=== PATIENT | male | born 1960 | race African-American/Black ===

== ENCOUNTER 2020-10-10 14:43 | Emergency (ER) | payer MEDICARE, OTHER, SELFPAY ==
--- NOTE | ~2020-10-10 | CT_ITS ---
EXAMINATION: HEAD AND CERVICAL SPINE CT CLINICAL INFORMATION: Fall COMPARISON: Previous head CT April [address] July 2017 TECHNIQUE: Axial images through the head and cervical spine without contrast. Sagittal and coronal reconstructions on the technologist workstation were performed. Patient dose 703+562 mgy/cm FINDINGS: Head CT: There is no evidence of an extra-axial collection. There is no evidence of intra-axial or extra-axial hemorrhage. The ventricles and extra-axial CSF spaces are appropriate. Pabon-white matter differentiation is normal. No mass, mass effect or infarct is seen. Review of bone windows is normal. No skull fracture is seen. Visualized paranasal sinuses, mastoid air cells and middle ears are clear. Cervical spine: Bone alignment is normal. No fracture or dislocation is seen. There is degenerative spondylosis with large bridging vertebral body bony osteophytes at C2-C3 C3-C4 and C4-C5. Spaces are normal. Prevertebral soft tissues are normal. There is a small 3 mm probably calcified right upper lobe nodule axial image [address]/CT cervical spine wo con IMPRESSION: Head CT: Unremarkable exam. Cervical spine CT: Degenerative changes. No fracture or dislocation is seen.
--- NOTE | ~2020-10-10 | CT_ITS ---
EXAMINATION: HEAD AND CERVICAL SPINE CT CLINICAL INFORMATION: Fall COMPARISON: Previous head CT April [address] July 2017 TECHNIQUE: Axial images through the head and cervical spine without contrast. Sagittal and coronal reconstructions on the technologist workstation were performed. Patient dose 703+562 mgy/cm FINDINGS: Head CT: There is no evidence of an extra-axial collection. There is no evidence of intra-axial or extra-axial hemorrhage. The ventricles and extra-axial CSF spaces are appropriate. Pabon-white matter differentiation is normal. No mass, mass effect or infarct is seen. Review of bone windows is normal. No skull fracture is seen. Visualized paranasal sinuses, mastoid air cells and middle ears are clear. Cervical spine: Bone alignment is normal. No fracture or dislocation is seen. There is degenerative spondylosis with large bridging vertebral body bony osteophytes at C2-C3 C3-C4 and C4-C5. Spaces are normal. Prevertebral soft tissues are normal. There is a small 3 mm probably calcified right upper lobe nodule axial image [address]/CT head/brain wo con IMPRESSION: Head CT: Unremarkable exam. Cervical spine CT: Degenerative changes. No fracture or dislocation is seen.
[2020-10-10 14:52] VITALS: BP 114/66; BP 118/69; PULSE 65; PULSE 78; RESP 18; TEMP 36.6; O2SAT 100; O2SAT 98; BMI 26.6
--- NOTE | 2020-10-10 15:04 | ED_ITS ---
HPI - Fall General Chief Complaint: Fall Stated Complaint: [facility] FALL W/LAC,+ COLLAR FROM SNF Time Seen by Provider: 10/10/20 14:48 Source: patient and EMS Mode of arrival: EMS Limitations: no limitations History of Present Illness HPI Narrative: 60-year-old male with a past medical history of hypertension, hyperlipidemia diabetes, hypothyroidism, hepatic fibrosis, schizophrenia, presbyopia, monocular estropia of left eye, corneal scar and opacity and acute cataract presenting via EMS with cervical collar in place after he was in the shower alone at [facility] where he is currently residing for [facility] unwitnessed fall port captain c head injury no LOC c laceration to right eyebrow. He reports that he slipped and fell. Denies any symptoms prior to the fall. Reports he got right back up and told the nurse and they called EMS immediately. Denies being on any blood thinners. At this time patient denies any dizziness, headaches, changes in vision, worsening vision, nausea/vomiting, jaw pain, paresthesias, chest pain, shortness of breath, palpitations, extremity edema, joint pain, back pain, abdominal pain, dysuria, hematuria, diarrhea constipation or any other symptoms complaints or concerns at this time. MD complaint: fall Onset (ago): minute(s) (Prior to arrival) Fall from: standing (In the shower slipped and fell) Fall witnessed: no Place fall occurred: [facility] ([facility]) Loss of consciousness: none Prolonged down time: no Symptoms prior to fall: none Context: tripped/slipped Location of injury: head (Right eyebrow) Related Data Allergies Allergy/AdvReac Type Severity Reaction Status Date / Time Penicillins [PCN] Allergy Intermediate DIZZINESS, Unverified 05/12/20 17:58 ALT MENTAL fish derived [FISH] Allergy Unknown UNKNOWN Unverified 05/12/20 17:58 shellfish derived Allergy Unknown UNKNOWN Unverified 05/12/20 17:58 [SHELLFISH DERIVED] SALMON Allergy Unknown UNKNOWN Uncoded 05/12/20 17:58 Review of Systems Review of Systems: Constitutional : No changes in activity, No lethargy, No recent prior head injury, No agitation, No increased fussiness ENT/Mouth : No Ear Pain, No Nasal discharge/drainage Eyes: No Eye Pain, No Swelling, No Redness, No Foreign Body, No Vision Changes Cardiovascular : No Chest Pain, No SOB Respiratory : No Cough Gastrointestinal : No Nausea, No Vomiting, No abdominal Pain Genitourinary : No Dysuria, No Urinary Frequency, No Urinary Incontinence, No Urgency, No Flank Pain Musculoskeletal : No joint pain, No neck stiffness, No back pain/injury Skin : + lacerations Neuro : No unsteady gait, No Paresthesias, No Loss of Consciousness, No altered mental status, No Headache, No Dizziness Yes all other systems are reviewed and are negative FOR[facility]LY [facility] Past Medical History Attestation statement: The following information was validated with the patient. Medical History Acute cataract Corneal scar and opacity Diabetic acidosis, type II Hepatic fibrosis HTN (hypertension) Hyperlipemia Hypothyroidism Monocular esotropia of left eye Presbyopia Psychosis Schizophrenia Social History Social History Advance Directives: No Advance Directives Information Provided: No Physical Exam Vital Signs: Vital Signs: Last Vital Signs Temp 97.8 F 10/10/20 16:26 Pulse 67 10/10/20 16:26 Resp 18 10/10/20 16:26 BP 119/70 10/10/20 16:26 Pulse Ox 95 10/10/20 16:26 Body Mass Index 26.6 Vital signs have been reviewed as normal and appeared to be correct. Blood pressure normal. Heart rate normal. Respiration rate normal. Temperature normal. Oxygen saturation normal. Appearance: Alert. Oriented X3. No acute distress. Head: To right eyebrow there is a 2 cm intermediate lack. No foreign bodies noted. No active bleeding noted. Otherwise the rest of the head external exam is normal and atraumatic. Able to rotate head bilaterally. Eyes: PERRLA. EOMI. No nystagmus noted. Conjunctiva and sclera normal. Eyelids normal. Corneal reflex normal. ENT: EAC normal. TM's Normal. Hearing normal. Pharynx normal. Uvula midline. tongue midline. Moist mucous membranes. No trismus noted. No drooling noted. No muffled voice noted. No nystagmus noted. Neck: C-collar in place and patient is having bilateral paracervical and mid cervical tenderness therefore C-collar will not be removed at this time. Normal inspection. Neck supple. No adenopathy. Trachea midline. Thyroid Normal. No meningeal signs. No neck mass noted. CVS: Normal heart rate and rhythm. Heart sound normal. No murmurs noted. Pulses normal throughout. Respiratory: No respiratory distress. Painless inspiration. Breath sounds normal. No wheezes/rales/rhonchi noted. Chest nontender. No accessory muscle usage noted or decreased air movement noted. Abdomen: Soft and nontender. Bowel sounds normal in all 4 quadrants. No distention noted. No organomegaly noted. No visible injury noted. Back: No CVA tenderness. Full range of motion noted. No obvious deformities noted. Skin: Skin warm and dry. Normal skin color. Normal skin turgor. No rashes/lesions/lacerations noted. Extremities: No lower extremity edema. Extremities exhibit normal range of motion. Extremities nontender. Able to shrug shoulders bilaterally and keep up against resistance. Neuro: Oriented X 3. No motor deficit. No sensory deficit. Reflexes normal. Moving all extremities. No focal motor deficits. Cranial nerves II-XI intact bilaterally. Facial strength normal. Normal cognition. Speech normal. Strength 5/5 throughout. No pronator drift. No tremor noted. No fasciculations noted. No rigidity noted. Muscle tone normal throughout. No asterixis noted. Zymuyd-hr-[id number] test normal. Heel to kingsley test normal. Hand drop from overhead Misses face. Course Course Course Narrative: 15pm - 60-year-old male with a past medical history of hypertension, hyperlipidemia diabetes, hypothyroidism, hepatic fibrosis, schizophrenia, presbyopia, monocular estropia of left eye, corneal scar and opacity and acute cataract presenting via EMS with cervical collar in place after he was in the shower alone at [facility] where he is currently residing for [facility] facility for unwitnessed fall port captain c head injury no LOC c laceration to right eyebrow. He reports that he slipped and fell. Denies symptoms prior to the fall. - Concern for SAH vs fracture - Plan: Labs, CT scan of brain/cervival spine, and then suture the patient's lac eration then re-evaluate. Reevaluation(s) Reevaluation #1: - white blood cell count of 4000 otherwise all other labs are within normal limits. - CT scan of brain and cervical spine within normal limits no acute processes only chronic changes noted. - patient is now status post laceration repair with [address] No co mplications. - will DC home back to [facility] with instructions return in 5 days for suture removal. Patient understands agrees the plan. Time: 16:51 Procedures Laceration Laceration 1: Site: face (Right eyebrow) Side (If applicable): right Size (cm): 3 Description: linear Depth: simple, single layer Local Anesthetic: lidocaine 1% Amount of anesthesia used (mL): 5 Skin layer closed with: nylon Size (cm): 5-0 Number of sutures: 5 Technique: simple, interrupted MDM - Fall Medical Records Attestation: I reviewed the patient's medical records. Lab Data Attestation: I reviewed the patient's lab results. Result diagrams: 10/10/20 15:30 10/10/20 15:30 Labs: Lab Results 10/10/20 10/10/20 10/10/20 Range/Units 15:30 15:30 15:30 WBC 4.5 L (4.8-10.8) X10*3/uL RBC 4.55 L (4.60-5.80) X10*6/uL Hgb 14.1 (14.0-18.0) g/dl Hct 43.6 (42-52) % MCV 95.8 (80-98) fL MCH 31.0 (27.0-33.0) pg MCHC 32.3 (31.0-36.0) g/dl RDW 13.0 (11.0-16.0) % Plt Count 211 (160-400) X10*3/uL MPV 10.5 (9.4-12.4) fL Immature Gran % (Auto) 0.2 (0.0-0.4) % Neut % (Auto) 42.4 L (45-73) % Lymph % (Auto) 44.8 H (20-40) % [place] % (Auto) 8.4 (2-11) % Eos % (Auto) 3.8 (0-4) % Baso % (Auto) 0.4 (0-2) % Lymph # (Auto) 2.0 (1.2-4.9) X10*3/uL [place] # (Auto) 0.4 (0.1-1.2) X10*3/uL Eos # (Auto) 0.2 (0.0-0.4) X10*3/uL Baso # (Auto) 0.0 (0.0-0.2) X10*3/uL Abs Immat Gran (auto) 0.01 (0.00-0.03) X10*3/uL Absolute Neuts (auto) 1.9 L (2.0-8.3) X10*3/uL Absolute Nucleated RBC 0.000 (0.0-0.012) X10*3/uL Nucleated RBC % (auto) 0.0 (0.0-0.2) /100WBC Hold Purple Top SEE NOTE Hold Blue Top SEE NOTE Sodium (135-145) mmol/L Potassium (3.3-5.1) mmol/L Chloride (96-108) mmol/L Carbon Dioxide (22-29) mmol/L Anion Gap (12-20) BUN (9-16) mg/dL Creatinine (0.5-1.4) mg/dL Estim Creat Clear Calc Estimated GFR Random Glucose (60-115) mg/dL Calcium (8.4-10.2) mg/dL Magnesium (1.6-2.6) mg/dL Total Bilirubin (0.0-1.0) mg/dL Direct Bilirubin (0.0-0.5) mg/dL AST (5-37) U/L ALT (0-40) U/L Alkaline Phosphatase (39-117) U/L Total Protein (6.5-8.0) g/dL Albumin (3.5-5.0) g/dL 10/10/20 Range/Units 15:30 WBC (4.8-10.8) X10*3/uL RBC (4.60-5.80) X10*6/uL Hgb (14.0-18.0) g/dl Hct (42-52) % MCV (80-98) fL MCH (27.0-33.0) pg MCHC (31.0-36.0) g/dl RDW (11.0-16.0) % Plt Count (160-400) X10*3/uL MPV (9.4-12.4) fL Immature Gran % (Auto) (0.0-0.4) % Neut % (Auto) (45-73) % Lymph % (Auto) (20-40) % [place] % (Auto) (2-11) % Eos % (Auto) (0-4) % Baso % (Auto) (0-2) % Lymph # (Auto) (1.2-4.9) X10*3/uL [place] # (Auto) (0.1-1.2) X10*3/uL Eos # (Auto) (0.0-0.4) X10*3/uL Baso # (Auto) (0.0-0.2) X10*3/uL Abs Immat Gran (auto) (0.00-0.03) X10*3/uL Absolute Neuts (auto) (2.0-8.3) X10*3/uL Absolute Nucleated RBC (0.0-0.012) X10*3/uL Nucleated RBC % (auto) (0.0-0.2) /100WBC Hold Purple Top Hold Blue Top Sodium 138 (135-145) mmol/L Potassium 4.9 (3.3-5.1) mmol/L Chloride 108 (96-108) mmol/L Carbon Dioxide 22 (22-29) mmol/L Anion Gap 13 (12-20) BUN 21 H (9-16) mg/dL Creatinine 0.84 (0.5-1.4) mg/dL Estim Creat Clear Calc 83.3 Estimated GFR > 60 Random Glucose 76 (60-115) mg/dL Calcium 10.0 (8.4-10.2) mg/dL Magnesium 2.4 (1.6-2.6) mg/dL Total Bilirubin 0.5 (0.0-1.0) mg/dL Direct Bilirubin < 0.2 (0.0-0.5) mg/dL AST 17 (5-37) U/L ALT 12 (0-40) U/L Alkaline Phosphatase 71 (39-117) U/L Total Protein 7.9 (6.5-8.0) g/dL Albumin 4.5 (3.5-5.0) g/dL Imaging Data CT scan of brain and cervical spine: Attestation: I personally reviewed and interpreted this imaging study as follows: Radiologist's impression: FINDINGS: Head CT: There is no evidence of an extra-axial collection. There is no evidence of intra-axial or extra-axial hemorrhage. The ventricles and extra-axial CSF spaces are appropriate. Pabon-white matter differentiation is normal. No mass, mass effect or infarct is seen. Review of bone windows is normal. No skull fracture is seen. Visualized paranasal sinuses, mastoid air cells and middle ears are clear. Cervical spine: Bone alignment is normal. No fracture or dislocation is seen. There is degenerative spondylosis with large bridging vertebral body bony osteophytes at C2-C3 C3-C4 and C4-C5. Spaces are normal. Prevertebral soft tissues are normal. There is a small 3 mm probably calcified right upper lobe nodule axial image [address]/CT head/brain wo con IMPRESSION: Head CT: Unremarkable exam. Cervical spine CT: Degenerative changes. No fracture or dislocation is seen. Discharge Plan Discharge Clinical Impression: Fall from slipping, Laceration of eyebrow, right Patient Disposition: [facility] Instructions: Fall Prevention (ED), Facial Laceration (ED) Additional Instructions: You can give the patient Tylenol for his pain if he has any. Up to 500 mg every 6-8 hours. Patient needs to have his sutures removed in 5 days. He has [address] scan of brain and cervical spine was within normal limits no acute processes noted. Referrals: Akua Cherry PA [Emergency Midlevel Provider] - 5 days (For suture removal) Emile Queen DO [Primary Care Provider] - 2 days Print Language: East Timorese
[2020-10-10 15:38] LABS: MANUAL DIFF FLAG NO
[2020-10-10 15:42] LABS: Basophils Percent Auto 0.4 % (0-2); Eosinophils Absolute Auto 0.2 X10*3/uL (0.0-0.4); Eosinophils Percent Auto 3.8 % (0-4); Hematocrit 43.6 % (42-52); Hemoglobin 14.1 g/dl (14.0-18.0); Imm Gran Abs Auto 0.01 X10*3/uL (0.00-0.03); Imm Gran Pct Auto 0.2 % (0.0-0.4); Lymphocytes Percent Auto 44.8 % (20-40); Mean Corpuscular HGB Conc 32.3 g/dl (31.0-36.0); Mean Corpuscular Volume 95.8 fL (80-98); Mean Platelet Volume 10.5 fL (9.4-12.4); Monocytes Absolute Auto 0.4 X10*3/uL (0.1-1.2); Monocytes Percent Auto 8.4 % (2-11); Neutrophils Absolute Auto 1.9 X10*3/uL (2.0-8.3); Neutrophils Percent Auto 42.4 % (45-73); Platelet Count 211 X10*3/uL (160-400); Red Blood Count 4.55 X10*6/uL (4.60-5.80); White Blood Count 4.5 X10*3/uL (4.8-10.8)
[2020-10-10 16:06] LABS: Alanine Aminotransferase 12 U/L (0-40); Albumin Level 4.5 g/dL (3.5-5.0); Alkaline Phosphatase 71 U/L (39-117); Anion Gap 13 (12-20); Aspartate Amino Transferase 17 U/L (5-37); Bilirubin Direct < 0.2 mg/dL (0.0-0.5); Bilirubin Total 0.5 mg/dL (0.0-1.0); Blood Urea Nitrogen 21 mg/dL (9-16); Carbon Dioxide 22 mmol/L (22-29); Chloride 108 mmol/L (96-108); Creatinine Clr Calc Pharmacy 83.3; Estimated Glomerular Filt Rate > 60; Glucose Random 76 mg/dL (60-115); Magnesium 2.4 mg/dL (1.6-2.6); Potassium 4.9 mmol/L (3.3-5.1); Sodium 138 mmol/L (135-145); Total Protein 7.9 g/dL (6.5-8.0)
[2020-10-10 16:26] VITALS: BP 119/70; PULSE 67; RESP 18; TEMP 36.6; O2SAT 95
[2020-10-10] MEDS: Lidocaine HCl 1 % MPF 5 ML VIAL SUBCUT (16:42)
--- NOTE | 2020-10-10 16:42 | PC.NURSE ---
idania reed at bedside for sutures.
--- NOTE | 2020-10-10 17:35 | PC.NURSE ---
Report called at 1732 to Carlos to nurse White.
--- NOTE | 2020-10-10 18:03 | PC.NURSE ---
Awaiting transport back to [facility] on [address].
[2020-10-10 18:19] VITALS: BP 139/71; PULSE 61; RESP 16; TEMP 36.4; O2SAT 99
== END 2020-10-10 19:38 | disposition skilled nursing facility (03) ==
PROVIDERS: Physician Assistant Medical; Emergency Provider Emergency Medicine; PCP Hospitalist
DX: S01.111A Laceration without foreign body of right eyelid and periocular area, initial encounter (principal); W18.2XXA Fall in (into) shower or empty bathtub, initial encounter; I10 Essential (primary) hypertension; E11.9 Type 2 diabetes mellitus without complications; Y93.E1 Activity, personal bathing and showering; Y92.121 Bathroom in nursing home as the place of occurrence of the external cause; Y99.9 Unspecified external cause status
CPT/HCPCS: 12013; 36415; 70450; 72125; 80048; 80076; 83735; 85025; 99284

== ENCOUNTER 2022-11-23 08:58 | Outpatient (REF) | payer MEDICARE, SELFPAY ==
--- NOTE | ~2022-11-23 | US_ITS ---
EXAMINATION: US COMPLETE ABDOMEN WITH LIVER ELASTOGRAPHY CLINICAL INFORMATION: Chronic viral hepatitis C COMPARISON: Previous abdominal ultrasound November 2018 TECHNIQUE: Real-time imaging of the abdominal viscera. Noninvasive ultrasound liver fibrosis assessment is performed using Isaiah ElastPQ point quantification shear wave elastography (2D-SWE) with a C5-2 MHz transducer. Multiple elastography samples are obtained. FINDINGS: PANCREAS: The visualized pancreatic head and body are normal in appearance. The remainder of the pancreas is obscured from visualization by the overlying bowel gas. ABDOMINAL AORTA: The proximal, middle, and distal aortic segments are normal in caliber. INFERIOR VENA CAVA: Visualized portions are normal. LIVER: Liver echotexture is slightly heterogeneous. The liver demonstrates normal size, and contour. No focal lesion or intrahepatic biliary duct dilatation. The right lobe measures 15 cm in length. The left lobe measures 9 cm in length. Portal flow is normal Shear wave liver elastography median stiffness is 1.08 m/s (reference: normal median stiffness is 1.3 m/s or less). IQR/median stiffness to assess sampling precision is 0.21 (reference: good quality data set is IQR/median stiffness of 0.15 or less). GALLBLADDER: Normal. The gallbladder is physiologically distended without evidence of stones, sludge, polyps, wall thickening or pericholecystic fluid. COMMON BILE DUCT: Normal in caliber measuring 0.4 cm in diameter. RIGHT KIDNEY: Normal. No hydronephrosis. No renal calculi or focal parenchymal lesions. The kidney measures 10.2 cm in maximum dimension. LEFT KIDNEY: Limited visualization. The kidney measures 10 cm in maximum dimension. SPLEEN: Normal. The spleen measures 10.5 cm in maximum dimension. FREE FLUID: None. US/US abdomen comp w elastography IMPRESSION: 1. Impression slightly heterogeneous liver echotexture. No focal liver lesion. Limited evaluation of the left kidney and tail of the pancreas. 2. Liver elastography: Limited due to sampling error. REFERENCE: Society of Radiologists in Ultrasound Liver Stiffness Thresholds (2020): LIVER STIFFNESS THRESHOLDS: *Liver Stiffness equal or less than 1.3 m/s: High probability of being normal. *Liver Stiffness less than 1.7 m/s: In the absence of other known clinical signs, rules out compensated advanced chronic liver disease. *Liver Stiffness 1.7-2.1 m/s: Suggestive of compensated advanced chronic liver disease but need further test for confirmation. *Liver Stiffness over 2.1 m/s: Rules in compensated advanced chronic liver disease. *Liver Stiffness over 2.4 m/s: Suggestive of clinically significant portal hypertension. QUALITY OF DATA SET: *IQR/Median value equal or less than 0.15 implies a quality data set. *IQR/Median value over 0.15 implies a poor quality data set. SIGNIFICANT CHANGE FROM PRIOR EXAM: Significant change if liver stiffness measurement is 10% or greater from prior exam. OTHER CONSIDERATIONS: The stage of liver fibrosis may be overestimated in the setting of acute hepatitis, liver inflammation, elevated liver function tests, hepatic vascular congestion, obstructive cholestasis, non-fasting state, and infiltrative diseases such as amyloidosis and lymphoma. In some patients with NAFLD, the liver stiffness thresholds for compensated advanced chronic liver disease may be lower. In causes other than viral hepatitis and NAFLD, liver stiffness thresholds are not well established.
== END 2022-11-23 08:59 | disposition home or self-care (01) ==
LOC: HO.US 08:58
PROVIDERS: PCP Hospitalist; Visit Provider Internal Medicine
DX: B18.2 Chronic viral hepatitis C (principal); K74.00 Hepatic fibrosis, unspecified
CPT/HCPCS: 76705; 76981

== ENCOUNTER 2024-01-10 08:49 | Outpatient (REF) | payer MEDICARE, MEDICAID, SELFPAY ==
--- NOTE | ~2024-01-10 | US_ITS ---
EXAMINATION: US COMPLETE ABDOMEN WITH LIVER ELASTOGRAPHY CLINICAL INFORMATION: Hepatitis C. Liver fibrosis. COMPARISON: Previous exam most recent October 2022 TECHNIQUE: Real-time imaging of the abdominal viscera. Noninvasive ultrasound liver fibrosis assessment is performed using Isaiah ElastPQ point quantification shear wave elastography (2D-SWE) with a C5-2 MHz transducer. Multiple elastography samples are obtained. FINDINGS: PANCREAS: Normal. ABDOMINAL AORTA: The proximal, middle, and distal aortic segments are normal in caliber. INFERIOR VENA CAVA: Visualized portions are normal. LIVER: Liver echotexture is slightly heterogeneous. The liver demonstrates normal size and contour. No focal lesion or intrahepatic biliary duct dilatation. The right lobe measures 12.8 cm in length. The left lobe measures 7.1 cm in length. Portal flow is normal/hepatopedal Shear wave liver elastography median stiffness is 1.46 m/s (reference: normal median stiffness is 1.3 m/s or less). Previous 1.08 m/s. IQR/median stiffness to assess sampling precision is 0.4 (reference: good quality data set is IQR/median stiffness of 0.15 or less). GALLBLADDER: Normal. The gallbladder is physiologically distended without evidence of stones, sludge, polyps, wall thickening or pericholecystic fluid. COMMON BILE DUCT: Normal in caliber measuring 0.3 cm in diameter. RIGHT KIDNEY: Normal. No hydronephrosis. No renal calculi or focal parenchymal lesions. The kidney measures 9.3 cm in maximum dimension. LEFT KIDNEY: Small cysts largest measuring 7 mm in the upper pole. No hydronephrosis. No renal calculi or focal parenchymal lesions. The kidney measures 9.6 cm in maximum dimension. SPLEEN: Normal. The spleen measures 9.2 cm in maximum dimension. FREE FLUID: None. US/US abdomen comp w elastography IMPRESSION: 1. Impression: Slightly heterogeneous liver echotexture. No evidence of cirrhosis or focal liver lesion. 2. Liver elastography: Limited due to sampling error/patient could not hold breath. REFERENCE: Society of Radiologists in Ultrasound Liver Stiffness Thresholds (2020): LIVER STIFFNESS THRESHOLDS: *Liver Stiffness equal or less than 1.3 m/s: High probability of being normal. *Liver Stiffness less than 1.7 m/s: In the absence of other known clinical signs, rules out compensated advanced chronic liver disease. *Liver Stiffness 1.7-2.1 m/s: Suggestive of compensated advanced chronic liver disease but need further test for confirmation. *Liver Stiffness over 2.1 m/s: Rules in compensated advanced chronic liver disease. *Liver Stiffness over 2.4 m/s: Suggestive of clinically significant portal hypertension. QUALITY OF DATA SET: *IQR/Median value equal or less than 0.15 implies a quality data set. *IQR/Median value over 0.15 implies a poor quality data set. SIGNIFICANT CHANGE FROM PRIOR EXAM: Significant change if liver stiffness measurement is 10% or greater from prior exam. OTHER CONSIDERATIONS: The stage of liver fibrosis may be overestimated in the setting of acute hepatitis, liver inflammation, elevated liver function tests, hepatic vascular congestion, obstructive cholestasis, non-fasting state, and infiltrative diseases such as amyloidosis and lymphoma. In some patients with NAFLD, the liver stiffness thresholds for compensated advanced chronic liver disease may be lower. In causes other than viral hepatitis and NAFLD, liver stiffness thresholds are not well established.
== END 2024-01-10 08:50 | disposition home or self-care (01) ==
LOC: HO.US 08:49
PROVIDERS: PCP Hospitalist; Visit Provider Internal Medicine
DX: K74.00 Hepatic fibrosis, unspecified (principal); Z86.19 Personal history of other infectious and parasitic diseases
CPT/HCPCS: 76700; 76981

== ENCOUNTER 2024-01-14 08:48 | Outpatient (AMB) | payer MEDICARE, SELFPAY ==
--- NOTE | 2024-01-14 08:58 | A.OFFVIS_ITS ---
Intake Visit Reasons: Urinary incontinences Intake Note: New Patient presents for initial visit for Urinary Incontinence Urology Medications: Blood Thinner: PVR: 51ml's Resident Physician In Radiology Required: No Accompanied by: INSULATION AND FLOORING ASSEMBLER Allergies Penicillins [PCN] Allergy (Intermediate, Unverified 01/14/24 09:31) DIZZINESS, ALT MENTAL fish derived [FISH] Allergy (Unknown, Unverified 01/14/24 09:31) UNKNOWN shellfish derived [SHELLFISH DERIVED] Allergy (Unknown, Unverified 01/14/24 09:31) UNKNOWN SALMON Allergy (Unknown, Uncoded 01/14/24 09:31) UNKNOWN Medication List - Last Reconciled 01/14/24 by LAURO Valdez acetaminophen 650 mg PO Q4H PRN gemfibrozil 600 mg PO BID insulin glargine (Lantus Solostar U-100 Insulin) units subcut levothyroxine mcg PO lisinopril 2.5 mg PO DAILY lithium carbonate ER 300 mg PO BID lurasidone 20 mg PO DAILY metformin 1,000 mg PO BID pregabalin 600 mg PO BID HPI Comments Details: Last is a 63-year-old male patient of Dr. Queen was accompanied by his care worker today Radha. He has a PMH of hypertension, schizophrenia, hemorrhoids, diverticulosis, fatty liver, type 2 diabetes, hyperlipidemia, corneal scar and opacity, hypothyroidism, monocular esotropia of the left eye, and psychosis. He presents to the office today as a new patient for urinary incontinence. In review of patient's not appear he is on any urological medications. Recent PSA results 12/17 3.9 these results were reviewed with the patient today. He is a poor historian given his PMH. When asked he currently denies any bothersome urinary issues or concerns. However in review of patient's chart it appears referral was made for urinary incontinence. When asking the patient if he suffers from urinary incontinence he does report at times he does not make it to the bathroom in time and wets his pants. He otherwise denies urinary urgency, urinary frequency, nocturia, hematuria, dysuria, foul smelling urine, changes to urinary stream, flank pain, fever, and or chills. In office urinalysis results reviewed with the patient and gambling cashier today. PVR 51 mL. Discussed obtaining retroperitoneal ultrasound and redraw of PSA for further assessment evaluation. Discussed lifestyle modifications to assist with urinary incontinence such as timed/scheduled voiding. [facility] Medical History (Updated 01/14/24 @ 09:31 by LAURO Valdez) Essential (primary) hypertension Disorder of bone, unspecified Schizophreniform disorder Other hemorrhoids Diverticulosis of intestine, part unspecified, without perforation or abscess without bleeding Fatty (change of) liver, not elsewhere classified Hepatic fibrosis, advanced fibrosis Unspecified astigmatism, left eye Age-related nuclear cataract, left eye Other corneal scars and opacities Unsteadiness on feet Unspecified lack of coordination Concussion without loss of consciousness, sequela Type 2 diabetes mellitus without complications Unspecified psychosis not due to a substance or known physiological condition Corneal scar and opacity Acute cataract Hyperlipemia HTN (hypertension) Hypothyroidism Presbyopia Schizophrenia Monocular esotropia of left eye Hepatic fibrosis Diabetic acidosis, type II Psychosis Social History Alcohol intake: former Review of Systems Const Unobtainable due to mental condition and Unobtainable due to mental status Reports as per HPI Physical Exam Const General: cooperative, healthy appearing, comfortable, no acute distress, well developed, alert and awake Orientation/consciousness: oriented to person Limitations: ambulation with walker HEENT Head: Yes normal to inspection, Yes normocephalic and Yes atraumatic Ears: hearing grossly normal bilaterally Eyes Other: Right eye with mo discoloration Neck Neck: Yes normal visual inspection and Yes trachea midline Chest Chest palpation & inspection: normal inspection of the chest Resp Effort & Inspection: normal respiratory effort and able to speak in complete sentences Cardio Rate: regular rate GI Inspection: Yes normal to inspection General: Yes no CVA tenderness Back/Spine/Pelvis Back: no CVA tenderness Skin General skin exam: no rashes or lesions noted Neuro General: oriented to person Extrem General: Yes normal to inspection Psych Appearance: grossly normal and well kempt Speech and movement: Normal speech and movement present and Clear speech present Affect: normal affect Attitude: cooperative Thought process: Loose association thought process present Insight: Limited insight present (Psych) and Poor insight present (Psych) Judgement: Limited judgement present (Psych) and Poor judgement present (Psych) Office Procedures Post Void Residual Post Residual Void Post Void Residual (PVR): 51 [id number] Void Residual by ultrasound Results AMB Urinalysis, Automated UA Leukoctes 0 Tyesha/uL Last Edit by Mily Milligan on 01/14/24 09:16 UA Nitrite Negative Last Edit by Mily Milligan on 01/14/24 09:16 UA Urobilinogen 0.2 mg/dL Last Edit by Mily Milligan on 01/14/24 09:16 UA Protein 15 mg/dL Last Edit by Mily Milligan on 01/14/24 09:16 UA pH 6.0 Last Edit by Mily Milligan on 01/14/24 09:16 UA Blood 0 Yovanny/uL Last Edit by Mily Milligan on 01/14/24 09:16 UA Specific [place] 1.015 Last Edit by Mily Milligan on 01/14/24 09:16 UA Ketone Negative Last Edit by Mily Milligan on 01/14/24 09:16 UA Bilirubin 0 mg/dL Last Edit by Mily Milligan on 01/14/24 09:16 UA Glucose 0 mg/dL Last Edit by Mily Milligan on 01/14/24 09:16 Results Reviewed Results Reviewed: Laboratory Last Values Urine pH (Auto) 6.0 01/14/24 09:07 Specific [place] (Auto) 1.015 01/14/24 09:07 Urine Protein (Auto) 15 mg/dL 01/14/24 09:07 Glucose (UA)(Auto) 0 mg/dL 01/14/24 09:07 Urine Ketones (Auto) Negative 01/14/24 09:07 Urine Blood (Auto) 0 Yovanny/uL 01/14/24 09:07 Urine Nitrite (Auto) Negative 01/14/24 09:07 Urine Bilirubin (Auto) 0 mg/dL 01/14/24 09:07 Urine Urobilinogen (Auto) 0.2 mg/dL 01/14/24 09:07 Leukocyte Esterase (Auto) 0 Tyesha/uL 01/14/24 09:07 Assessment & Plan Assessment & Plan (1) Incontinence: Code(s): R32 - Unspecified urinary incontinence Category: Medical Plan In office urinalysis results reviewed with the patient today. PVR 51 mLs Recent PSA results reviewed with the patient today; as noted above. Will obtain retroperitoneal ultrasound for further assessment evaluation. Will obtain redraw of PSA Discussed timed/scheduled voiding. Discussed bladder triggers/irritants. Follow-up in 1-3 months with imaging and labs to be completed prior; or sooner with any issues, concerns, and or questions. Orders: Orders US retroperitoneal comp Today R32 - Unspecified urinary incontinence AMB Urinalysis Automated Today Z13.9 - Encounter for screening, unspecified AMB Post Void Residual by ultrasound Today Z13.9 - Encounter for screening, unspecified Prostate Specific Antigen Today R97.20 - Elevated prostate specific antigen [PSA] Patient Instructions: The patient had an opportunity to ask questions regarding the treatment plan. All questions were answered. Physical exam, labs, and imaging were discussed and reviewed in detail. As well as risks, benefits, and discussion of treatment choices. No major barriers to understanding were identified. The patient expressed understanding and agreement with the above treatment plan. The patient was made aware they should contact our office by phone for worsening of their current condition, the appearance of new symptoms, or with any questions or concerns. Compliance is encouraged with any medications and follow up testing that is ordered. It is a privilege to be allowed the opportunity to participate in? your urological care.? Again, if you have any questions or concerns If you have any questions or concerns please do not hesitate to contact me. The office is [phone]. This note is constructed using voice recognition software. While every effort has been made to ensure accuracy fire supervisor errors may have been included. Yours sincerely, LAURO Valdez Coding Level of Care Code New Pt Level 3 (34201) Diagnoses Incontinence R32 CPT Codes Post Residual Void - PVR CPT Code: 96740-Aqya Void Residual by ultrasound ([id number])
== END 2024-01-14 09:33 | disposition home or self-care (01) ==
PROVIDERS: PCP Hospitalist; Visit Provider Nurse Practitioner Family
DX: R32 Unspecified urinary incontinence (principal); Z13.9 Encounter for screening, unspecified
CPT/HCPCS: 99203

== ENCOUNTER → 2024-01-14 08:48 | Outpatient (BNVA) | payer MEDICARE, MEDICAID, SELFPAY | PROVIDERS: PCP Hospitalist; Visit Provider Nurse Practitioner Family | DX: R32 Unspecified urinary incontinence (principal) | CPT/HCPCS: 51798; 81003; 99202 ==

== ENCOUNTER 2024-03-03 13:38 | Outpatient (REF) | payer MEDICARE, SELFPAY ==
[2024-03-03 14:00] LABS: MANUAL DIFF FLAG NO
[2024-03-03 14:47] LABS: Basophils Percent Auto 0.5 % (0-2); Eosinophils Absolute Auto 0.3 X10*3/uL (0.0-0.4); Eosinophils Percent Auto 4.9 % (0-4); Hematocrit 41.7 % (42.0-52.0); Hemoglobin 13.7 g/dl (14.0-18.0); Imm Gran Abs Auto 0.01 X10*3/uL (0.00-0.03); Imm Gran Pct Auto 0.2 % (0.0-0.4); Lymphocytes Absolute Auto 1.9 X10*3/uL (1.2-4.9); Mean Corpuscular HGB Conc 32.9 g/dl (31.0-36.0); Mean Corpuscular Hemoglobin 31.4 pg (27.0-33.0); Mean Corpuscular Volume 95.6 fL (80.0-98.0); Mean Platelet Volume 10.4 fL (9.4-12.4); Monocytes Absolute Auto 0.5 X10*3/uL (0.1-1.2); Monocytes Percent Auto 8.6 % (2-11); Neutrophils Absolute Auto 2.8 x10*3/uL (2.0-8.3); Neutrophils Percent Auto 50.8 % (45-73); Platelet Count 238 X10*3/uL (160-400); Red Blood Count 4.36 X10*6/uL (4.60-5.80); Red Cell Distribution Width 13.1 % (11.0-16.0); White Blood Count 5.5 X10*3/uL (4.8-10.8)
[2024-03-03 14:50] LABS: Prothrombin Time 11.6 SEC (11.1-13.3)
[2024-03-03 15:30] LABS: Alanine Aminotransferase 15 U/L (0-40); Albumin Level 4.5 g/dL (3.5-5.0); Alkaline Phosphatase 91 U/L (39-117); Aspartate Amino Transferase 14 U/L (5-37); Bilirubin Direct < 0.2 mg/dL (0.0-0.5); Bilirubin Total 0.2 mg/dL (0.0-1.0); Total Protein 7.6 g/dL (6.5-8.0)
[2024-03-04 11:28] LABS: Alpha Fetoprotein 7.5 ng/mL (<6.1)
[2024-03-05 15:04] LABS: HCV Log PCR <1.18 NOT DETECTED Log IU/mL (NOT DETECTED); HepC Viral Load <15 NOT DETECTED IU/mL (NOT DETECTED)
[2024-03-12 17:18] LABS: FIB-ALT 13 U/L (9-46); FIB-Alpha-2-Macroglobulin 271 mg/dL (106-279); FIB-Apolipoprotein A1 92 mg/dL (94-176); FIB-GGT 11 U/L (3-70); FIB-Haptoglobin 124 mg/dL (43-212); FIB-Total Bilirubin 0.2 mg/dL (0.2-1.2); Liver Fibrosis Score 0.33; Liver Fibrosis Stage F1-F2; Nec Inflam Act Grade A0; Nec Inflam Act Score 0.04
== END 2024-03-03 13:39 | disposition home or self-care (01) ==
LOC: HO.LAB 13:38
PROVIDERS: PCP Hospitalist; Visit Provider Internal Medicine
DX: K74.00 Hepatic fibrosis, unspecified (principal); Z86.19 Personal history of other infectious and parasitic diseases
CPT/HCPCS: 36415; 80076; 81596; 82105; 85025; 85610; 87522

== ENCOUNTER 2024-04-10 13:47 | Outpatient (REF) | payer MEDICARE, MEDICAID, SELFPAY ==
--- NOTE | ~2024-04-10 | US_ITS ---
EXAMINATION: US RETROPERITONEAL COMPLETE (RENAL) CLINICAL INFORMATION: Unspecified urinary incontinence. COMPARISON: Ultrasound abdomen complete 01/10/2024 and 11/23/2022. CT abdomen and pelvis 02/17/2016. TECHNIQUE: Real-time imaging of the kidneys and bladder. FINDINGS: RIGHT KIDNEY: 11.0 x 4.4 x 4.4 cm (SAG x AP x TRV). The kidney is normal in size, contour, and echogenicity. Renal cortical thickness is normal. No calculi or focal parenchymal lesions. No hydronephrosis. LEFT KIDNEY: 10.8 x 5.9 x 5.0 cm (SAG x AP x TRV). The kidney is normal in size, contour, and echogenicity. Renal cortical thickness is normal. No renal calculi or hydronephrosis. Benign-appearing renal cysts measuring up to 1.5 cm. No follow-up imaging is recommended. BLADDER: Urinary bladder appears thick walled and slightly trabeculated. Bilateral ureteral jets are demonstrated. Prevoid bladder volume is 180.6 mL. Postvoid bladder volume is 152.6 mL. ADDITIONAL FINDINGS: Prostate is enlarged with a volume of 72.1 mL. US/US retroperitoneal comp IMPRESSION: 1. Urinary bladder appears thick walled and slightly trabeculated with a large postvoid bladder residual of 152.6 mL. Recommend correlation with symptoms of chronic bladder outlet obstruction or neurogenic bladder. 2. Prostate is enlarged with a volume of 72.1 mL. 3. Unremarkable sonographic appearance of the kidneys. Electronically signed by: Jillian Flowers MD 05/04/2024 06:44 PM EDT
== END 2024-04-10 13:48 | disposition home or self-care (01) ==
LOC: HO.US 13:47
PROVIDERS: PCP Hospitalist; Visit Provider Nurse Practitioner Family
DX: R32 Unspecified urinary incontinence (principal)
CPT/HCPCS: 76770

== ENCOUNTER 2024-04-15 09:29 | Outpatient (AMB) | payer MEDICARE, SELFPAY ==
--- NOTE | 2024-04-15 09:48 | MHC.OFFVIS ---
Intake Visit Reasons: 3m/US/PSA Intake Note: New Patient presents for initial visit for Urinary Incontinence Imaging Completed: 04/10/24 PSA: 4.3 Urology Medications: none Blood Thinner: none PVR: 54ml's Finger Cobbler Required: No Accompanied by: DIESEL ENGINEER Allergies Penicillins [PCN] Allergy (Intermediate, Unverified 04/15/24 10:28) DIZZINESS, ALT MENTAL fish derived [FISH] Allergy (Unknown, Unverified 04/15/24 10:28) UNKNOWN shellfish derived [SHELLFISH DERIVED] Allergy (Unknown, Unverified 04/15/24 10:28) UNKNOWN SALMON Allergy (Unknown, Uncoded 04/15/24 10:28) UNKNOWN Medication List - Last Reconciled 04/15/24 by LATESHA Valdez-DANG acetaminophen 650 mg PO Q4H PRN bisacodyl (Dulcolax (bisacodyl)) 10 mg NH DAILY PRN chlorhexidine gluconate 0.12% PO finasteride 5 mg PO DAILY 90 days gemfibrozil 600 mg PO BID glucagon (GlucaGen HypoKit) 1 mg subcut Q20M PRN insulin glargine (Lantus Solostar U-100 Insulin) units subcut levothyroxine mcg PO lisinopril 2.5 mg PO DAILY lithium carbonate ER 300 mg PO BID lurasidone mg PO metformin 1,000 mg PO BID polyvinyl alcohol 1.4% (Artificial Tears (polyvinyl alcohol)) 1 drp ophthalmic (eye) BID pregabalin 600 mg PO BID saliva substitute combo no.9 (Biotene Dry Mouth Oral Rinse mouthwash) 15 mL PO DAILY HPI Comments Details: Last is a 63-year-old male patient of Dr. Queen was accompanied by one of the staff members at [facility]. He has a PMH of hypertension, schizophrenia, hemorrhoids, diverticulosis, fatty liver, type 2 diabetes, hyperlipidemia, corneal scar and opacity, hypothyroidism, monocular esotropia of the left eye, and psychosis. He presents to the office today for follow-up. Of note, patient was seen approximately 3 months ago as a new patient for urinary incontinence at which time a retroperitoneal ultrasound and PSA were ordered for further assessment evaluation. These results were reviewed with the patient today................ PSAs are as follows: 12/17 3.9, 04/18 4.3 During last office visit PSA % free was ordered however only PSA was drawn. We discussed at length potential causes for slightly elevated PSA. Discussed further treatment options to include surveillance monitoring verses trial of finasteride versus prostate biopsy. Risks and benefits of these interventions were discussed at length. Reports feeling timed/scheduled voiding has been helpful in decreasing his episodes of incontinence he had been experiencing. He currently denies any bothersome urinary issues or concerns. Unable to obtain urine for urinalysis today however PVR 54ml's. When asked he denies urinary urgency, urinary frequency, nocturia, hematuria, dysuria, foul smelling urine, changes to urinary stream, flank pain, fever, and or chills. He otherwise offers no other issues or concerns at this time. [facility] Medical History (Updated 04/15/24 @ 10:33 by LATESHA Valdez-DANG) Essential (primary) hypertension Disorder of bone, unspecified Schizophreniform disorder Other hemorrhoids Diverticulosis of intestine, part unspecified, without perforation or abscess without bleeding Fatty (change of) liver, not elsewhere classified Hepatic fibrosis, advanced fibrosis Unspecified astigmatism, left eye Age-related nuclear cataract, left eye Other corneal scars and opacities Unsteadiness on feet Unspecified lack of coordination Concussion without loss of consciousness, sequela Type 2 diabetes mellitus without complications Unspecified psychosis not due to a substance or known physiological condition Corneal scar and opacity Acute cataract Hyperlipemia HTN (hypertension) Hypothyroidism Presbyopia Schizophrenia Monocular esotropia of left eye Hepatic fibrosis Diabetic acidosis, type II Psychosis Social History Alcohol intake: former Review of Systems Const Unobtainable due to mental condition and Unobtainable due to mental status Reports as per HPI Physical Exam Const General: cooperative, healthy appearing, comfortable, no acute distress, well developed, alert and awake Orientation/consciousness: oriented to person Limitations: ambulation with walker HEENT Head: Yes normal to inspection, Yes normocephalic and Yes atraumatic Ears: hearing grossly normal bilaterally Eyes Other: Right eye with mo discoloration Neck Neck: Yes normal visual inspection and Yes trachea midline Chest Chest palpation & inspection: normal inspection of the chest Resp Effort & Inspection: normal respiratory effort and able to speak in complete sentences Cardio Rate: regular rate GI Inspection: Yes normal to inspection General: Yes no CVA tenderness Back/Spine/Pelvis Back: no CVA tenderness Skin General skin exam: no rashes or lesions noted Neuro General: oriented to person Extrem General: Yes normal to inspection Psych Appearance: grossly normal and well kempt Speech and movement: Normal speech and movement present and Clear speech present Affect: normal affect Attitude: cooperative Thought process: Loose association thought process present Insight: Limited insight present (Psych) and Poor insight present (Psych) Judgement: Limited judgement present (Psych) and Poor judgement present (Psych) Office Procedures Post Void Residual Post Residual Void Post Void Residual (PVR): 54 [id number] Void Residual by ultrasound Assessment & Plan Assessment & Plan (1) Enlarged prostate: Code(s): N40.0 - Benign prostatic hyperplasia without lower urinary tract symptoms Category: Medical (2) Incontinence: Code(s): R32 - Unspecified urinary incontinence Category: Medical (3) Renal cyst, left: Code(s): N28.1 - Cyst of kidney, acquired Category: Medical (4) BPH with elevated PSA: Code(s): N40.0 - Benign prostatic hyperplasia without lower urinary tract symptoms; R97.20 - Elevated prostate specific antigen [PSA] Category: Medical Plan Unable to obtain urine for urinalysis however PVR 54 mL. Recent retroperitoneal ultrasound results reviewed with the patient today; as noted above. Recent PSA results reviewed with the patient today; as noted above. Discussed at length potential causes of slightly elevated PSA; discussed further treatment options to include surveillance monitoring verses trial of medication verses prostate biopsy; risks and benefits of these interventions were discussed at length. Continue with lifestyle modifications to assist with decreasing episodes of urine incontinence such as timed/scheduled voiding. Start finasteride as discussed and prescribed. Will reassess PSA in 4 months. Follow-up in 4 months with PSA and PVR; or sooner with any issues, concerns, and or questions. Orders: Orders AMB Post Void Residual by ultrasound Today R32 - Unspecified urinary incontinence Prostate Specific Antigen 4 Months N40.0 - Benign prostatic hyperplasia without lower urinary tract symptoms Medications: New finasteride 5 mg PO DAILY 90 tabs 1RF 90 days N13.8 - Other obstructive and reflux uropathy, N40.1 - Benign prostatic hyperplasia with lower urinary tract symptoms, R33.9 - Retention of urine, unspecified Patient Instructions: The patient had an opportunity to ask questions regarding the treatment plan. All questions were answered. Physical exam, labs, and imaging were discussed and reviewed in detail. As well as risks, benefits, and discussion of treatment choices. No major barriers to understanding were identified. The patient expressed understanding and agreement with the above treatment plan. The patient was made aware they should contact our office by phone for worsening of their current condition, the appearance of new symptoms, or with any questions or concerns. Compliance is encouraged with any medications and follow up testing that is ordered. It is a privilege to be allowed the opportunity to participate in? your urological care.? Again, if you have any questions or concerns If you have any questions or concerns please do not hesitate to contact me. The office is [phone]. This note is constructed using voice recognition software. While every effort has been made to ensure accuracy shovel oiler errors may have been included. Yours sincerely, LAURO Valdez Coding Level of Care Code Est Pt Level 4 (88795) Diagnoses Enlarged prostate N40.0 Incontinence R32 Renal cyst, left N28.1 BPH with elevated PSA N40.0; R97.20 CPT Codes Post Residual Void - PVR CPT Code: 31733-Pwym Void Residual by ultrasound ([id number])
== END 2024-04-15 10:30 | disposition home or self-care (01) ==
PROVIDERS: PCP Hospitalist; Visit Provider Nurse Practitioner Family
DX: N40.0 Benign prostatic hyperplasia without lower urinary tract symptoms (principal); R32 Unspecified urinary incontinence; N28.1 Cyst of kidney, acquired; R97.20 Elevated prostate specific antigen [PSA]
CPT/HCPCS: 99214

== ENCOUNTER → 2024-04-15 09:29 | Outpatient (BNVA) | payer MEDICARE, SELFPAY | PROVIDERS: PCP Hospitalist; Visit Provider Nurse Practitioner Family | DX: N40.1 Benign prostatic hyperplasia with lower urinary tract symptoms (principal); R33.8 Other retention of urine; N13.8 Other obstructive and reflux uropathy; R32 Unspecified urinary incontinence; R97.20 Elevated prostate specific antigen [PSA]; N28.1 Cyst of kidney, acquired | CPT/HCPCS: 51798; 99212 ==

== ENCOUNTER 2024-08-13 10:19 | Outpatient (AMB) | payer MEDICARE, SELFPAY ==
--- NOTE | 2024-08-13 10:20 | MHC.OFFVIS ---
Intake Visit Reasons: 4m/PSA Intake Note: Patient presents today for follow up visit on: Urinary Incontinence, enlarged prostate, BPH, PSA lab results, and renal cyst PSA: 3.70 Urology Medications: finasteride Blood Thinner: none PVR: 23ml's Safety Engineer Pressure Vessels Required: No Accompanied by: COMPETENCY EVALUATED NURSE AIDE Allergies Penicillins [PCN] Allergy (Intermediate, Unverified 08/13/24 13:42) DIZZINESS, ALT MENTAL fish derived [FISH] Allergy (Unknown, Unverified 08/13/24 13:42) UNKNOWN shellfish derived [SHELLFISH DERIVED] Allergy (Unknown, Unverified 08/13/24 13:42) UNKNOWN SALMON Allergy (Unknown, Uncoded 08/13/24 13:42) UNKNOWN Medication List - Last Reconciled 08/13/24 by LATESHA Valdez-DANG acetaminophen 650 mg PO Q4H PRN bisacodyl (Dulcolax (bisacodyl)) 10 mg VT DAILY PRN chlorhexidine gluconate 0.12% PO finasteride 5 mg PO DAILY 90 days gemfibrozil 600 mg PO BID glucagon (GlucaGen HypoKit) 1 mg subcut Q20M PRN insulin glargine (Basaglar KwikPen U-100 Insulin) 15 units subcut QAM levothyroxine mcg PO lisinopril 2.5 mg PO DAILY lithium carbonate ER 300 mg PO BID lurasidone mg PO metformin 1,000 mg PO BID polyvinyl alcohol 1.4% (Artificial Tears (polyvinyl alcohol)) 1 drp ophthalmic (eye) BID pregabalin 600 mg PO BID saliva substitute combo no.9 (Biotene Dry Mouth Oral Rinse mouthwash) 15 mL PO DAILY HPI Comments Details: Last is a 63-year-old male patient of Dr. Queen was accompanied by one of the staff members at [facility]. He has a PMH of hypertension, schizophrenia, hemorrhoids, diverticulosis, fatty liver, type 2 diabetes, hyperlipidemia, corneal scar and opacity, hypothyroidism, monocular esotropia of the left eye, and psychosis. He presents to the office today for follow-up. In discussion with the patient today reports to be doing and feeling well. He denies any bothersome urinary issues or concerns at this time. He reports compliance with finasteride as prescribed. Recent PSA results reviewed with the patient today as noted and trended below. 12/17 3.9, 04/18 4.3, 08/18 3.7 Previous workup has included a retroperitoneal ultrasound 04/18 noting bilateral kidneys are normal in size, contour, and echogenicity. Bilateral kidneys with no hydronephrosis or renal calculi. Benign-appearing renal cysts measuring up to 1.5 cm on the left side that require no follow-up imaging per radiology report. The bladder appears thick walled and slightly trabeculated. Bladder jets are demonstrated. Pre void bladder volume is approximately 180 mL. Postvoid bladder volume is proximally 150 mL. Prostate gland with a volume of 72 mL. He discusses feeling timed/scheduled voiding has been helpful in decreasing his episodes of incontinence he had been experiencing. He currently denies any bothersome urinary issues or concerns. Staff accompanied by patient deny any bothersome urinary issues or concerns at this time as well. In office urinalysis results reviewed the patient today. PVR 23 mL. When asked he denies urinary urgency, urinary frequency, nocturia, hematuria, dysuria, foul smelling urine, changes to urinary stream, flank pain, fever, and or chills. He otherwise offers no other issues or concerns at this time. [facility] Medical History Essential (primary) hypertension Disorder of bone, unspecified Schizophreniform disorder Other hemorrhoids Diverticulosis of intestine, part unspecified, without perforation or abscess without bleeding Fatty (change of) liver, not elsewhere classified Hepatic fibrosis, advanced fibrosis Unspecified astigmatism, left eye Age-related nuclear cataract, left eye Other corneal scars and opacities Unsteadiness on feet Unspecified lack of coordination Concussion without loss of consciousness, sequela Type 2 diabetes mellitus without complications Unspecified psychosis not due to a substance or known physiological condition Corneal scar and opacity Acute cataract Hyperlipemia HTN (hypertension) Hypothyroidism Presbyopia Schizophrenia Monocular esotropia of left eye Hepatic fibrosis Diabetic acidosis, type II Psychosis Social History Alcohol intake: former Review of Systems Const Unobtainable due to mental status Physical Exam Const General: cooperative, healthy appearing, comfortable, no acute distress, well developed, alert and awake Orientation/consciousness: oriented to person Limitations: ambulation with walker HEENT Head: Yes normal to inspection, Yes normocephalic and Yes atraumatic Ears: hearing grossly normal bilaterally Eyes Other: Right eye with mo discoloration Neck Neck: Yes normal visual inspection and Yes trachea midline Chest Chest palpation & inspection: normal inspection of the chest Resp Effort & Inspection: normal respiratory effort and able to speak in complete sentences Cardio Rate: regular rate GI Inspection: Yes normal to inspection General: Yes no CVA tenderness Back/Spine/Pelvis Back: no CVA tenderness Skin General skin exam: no rashes or lesions noted Neuro General: oriented to person Extrem General: Yes normal to inspection Psych Appearance: grossly normal and well kempt Speech and movement: Normal speech and movement present and Clear speech present Affect: normal affect Attitude: cooperative Thought process: Loose association thought process present Insight: Limited insight present (Psych) and Poor insight present (Psych) Judgement: Limited judgement present (Psych) and Poor judgement present (Psych) Office Procedures Post Void Residual Post Residual Void Post Void Residual (PVR): 23 [id number] Void Residual by ultrasound Results AMB Urinalysis, Automated UA Leukoctes 0 Tyesha/uL Last Edit by [employer] on 08/13/24 11:17 UA Nitrite Last Edit by [employer] on 08/13/24 11:17 UA Urobilinogen 0.2 mg/dL Last Edit by [employer] on 08/13/24 11:17 UA Protein 15 mg/dL Last Edit by [employer] on 08/13/24 11:17 UA pH 6.0 Last Edit by [employer] on 08/13/24 11:17 UA Blood 10 Yovanny/uL Last Edit by [employer] on 08/13/24 11:17 UA Specific [place] 1.015 Last Edit by [employer] on 08/13/24 11:17 UA Ketone Last Edit by [employer] on 08/13/24 11:17 UA Bilirubin 0 mg/dL Last Edit by [employer] on 08/13/24 11:17 UA Glucose 0 mg/dL Last Edit by [employer] on 08/13/24 11:17 Results Reviewed Results Reviewed: Laboratory Last Values Urine pH (Auto) 6.0 08/13/24 11:16 Specific [place] (Auto) 1.015 08/13/24 11:16 Urine Protein (Auto) 15 mg/dL 08/13/24 11:16 Glucose (UA)(Auto) 0 mg/dL 08/13/24 11:16 Urine Blood (Auto) 10 Yovanny/uL 08/13/24 11:16 Urine Bilirubin (Auto) 0 mg/dL 08/13/24 11:16 Urine Urobilinogen (Auto) 0.2 mg/dL 08/13/24 11:16 Leukocyte Esterase (Auto) 0 Tyesha/uL 08/13/24 11:16 Assessment & Plan Assessment & Plan (1) Incontinence: Code(s): R32 - Unspecified urinary incontinence Category: Medical (2) Enlarged prostate: Code(s): N40.0 - Benign prostatic hyperplasia without lower urinary tract symptoms Category: Medical (3) BPH with elevated PSA: Code(s): N40.0 - Benign prostatic hyperplasia without lower urinary tract symptoms; R97.20 - Elevated prostate specific antigen [PSA] Category: Medical (4) Renal cyst, left: Code(s): N28.1 - Cyst of kidney, acquired Category: Medical Plan In office urinalysis results reviewed with the patient today; as noted above. PVR 23 mL. Recent PSA results reviewed with the patient today; as noted above. Continue finasteride as discussed and prescribed. Discussed continuation of surveillance monitoring of PSA Patient currently denies any bothersome urinary issues or concerns. He reports be happy with current voiding parameters. Continue with lifestyle modifications to assist with decreasing episodes of urine incontinence such as timed/scheduled voiding. Will obtain PSA in 6 months. Follow-up in 6 months with lab to be completed prior; or sooner with any issues, concerns, and or questions. Orders: Orders Prostate Specific Antigen 6 Months N40.0 - Benign prostatic hyperplasia without lower urinary tract symptoms, R97.20 - Elevated prostate specific antigen [PSA] AMB Urinalysis Automated Today Z13.9 - Encounter for screening, unspecified AMB Post Void Residual by ultrasound Today N40.0 - Benign prostatic hyperplasia without lower urinary tract symptoms, R97.20 - Elevated prostate specific antigen [PSA] Patient Instructions: The patient had an opportunity to ask questions regarding the treatment plan. All questions were answered. Physical exam, labs, and imaging were discussed and reviewed in detail. As well as risks, benefits, and discussion of treatment choices. No major barriers to understanding were identified. The patient expressed understanding and agreement with the above treatment plan. The patient was made aware they should contact our office by phone for worsening of their current condition, the appearance of new symptoms, or with any questions or concerns. Compliance is encouraged with any medications and follow up testing that is ordered. It is a privilege to be allowed the opportunity to participate in? your urological care.? Again, if you have any questions or concerns If you have any questions or concerns please do not hesitate to contact me. The office is [phone]. This note is constructed using voice recognition software. While every effort has been made to ensure accuracy protective signal superintendent errors may have been included. Yours sincerely, LAURO Valdez Coding Level of Care Code Est Pt Level 3 (00216) Complex EM visit Add On G2211 Diagnoses Incontinence R32 Enlarged prostate N40.0 BPH with elevated PSA N40.0; R97.20 Renal cyst, left N28.1 CPT Codes Post Residual Void - PVR CPT Code: 76508-Xzsa Void Residual by ultrasound ([id number])
== END 2024-08-13 10:51 | disposition home or self-care (01) ==
PROVIDERS: PCP Hospitalist; Visit Provider Nurse Practitioner Family
DX: R32 Unspecified urinary incontinence (principal); N40.0 Benign prostatic hyperplasia without lower urinary tract symptoms; R97.20 Elevated prostate specific antigen [PSA]; N28.1 Cyst of kidney, acquired; Z13.9 Encounter for screening, unspecified
CPT/HCPCS: 99213; G2211

== ENCOUNTER → 2024-08-13 10:19 | Outpatient (BNVA) | payer MEDICARE, SELFPAY | PROVIDERS: PCP Hospitalist; Visit Provider Nurse Practitioner Family | DX: R32 Unspecified urinary incontinence (principal); N40.0 Benign prostatic hyperplasia without lower urinary tract symptoms; N28.1 Cyst of kidney, acquired; R97.20 Elevated prostate specific antigen [PSA] | CPT/HCPCS: 51798; 81003; 99212 ==

== ENCOUNTER → 2025-02-10 10:18 | Outpatient (BNV) | payer MEDICARE, MEDICAID, SELFPAY | PROVIDERS: PCP Hospitalist; Visit Provider Nurse Practitioner Family | DX: Z13.9 Encounter for screening, unspecified (principal) | CPT/HCPCS: 81003 ==

== ENCOUNTER 2025-02-10 10:30 | Outpatient (AMB) | payer MEDICARE, MEDICAID, SELFPAY ==
--- OUTSIDE RECORDS SUMMARY | 2023-10-29 05:10 | XMS_ITS ---
Author Organization [facility] Address [address] [place] [address] Care Team Providers Care Applications Programmer Analyst Name Role Phone Emile Queen Primary Care Provider Srinivasa Escobedo [phone] REASON FOR VISIT Patient presents today for chronic hep c Encounters Encounter Location Date Provider Diagnosis [facility] [address] [place] [id number] 10/29/2023 Srinivasa Adame Plan Of Treatment Next Appt Details Provider Name:Srinivasa Adame , 03/03/2025 01:20:00 PM, [address], [address], [place], [address], Progress Notes * HAVEN JAFFEDOB: [birth year] (64 yo M)Acc No.[id number]:10/29/2023 Progress Notes Patient: HAVEN NATHAN Provider: Clay Adame MD :1960 A ge:63 Y S ex:Male Date:10/29/2023 Address:[facility]/o [facility] [address], [place], [place] Pcp:Emile Queen Subjective: * Chief Complaints: * 1 . Patient presents today for chronic hep c. * Medical History: Objective: * Vitals: Assessment: Plan: * Treatment: * * The named appointment provid er may or may not be the originator of this progress note, and it is not deemed complete until electronically signed by the appointment provider. Sign off status: Pending * Provider: Clay Adame MD Date: 0 10/29/2023 Generated for Jade sánchez/Mt/Cyn on: 0 02/10/2025 11:57 AM EDT
--- NOTE | 2025-02-10 10:15 | A.OFFVIS_ITS ---
Intake Visit Reasons: 6m/PSA Intake Note: Patient presents today for follow up visit on: Urinary Incontinence, enlarged prostate, BPH, PSA lab results, and renal cyst PSA: 2.85 Urology Medications: finasteride Blood Thinner: none PVR: 49ml's Marketing Research Coordinator Required: No Accompanied by: INSTRUMENT MAKER AND REPAIRER Allergies Penicillins (PCN) Allergy (Intermediate, Verified 02/10/25 10:44) DIZZINESS, ALT MENTAL fish derived (FISH) Allergy (Unknown, Verified 02/10/25 10:44) UNKNOWN shellfish derived (SHELLFISH DERIVED) Allergy (Unknown, Verified 02/10/25 10:44) UNKNOWN SALMON Allergy (Unknown, Uncoded 02/10/25 10:44) UNKNOWN Medication List - Last Reconciled 02/10/25 by TAPAN Valdez acetaminophen 650 mg PO Q4H PRN bisacodyl (Dulcolax (bisacodyl)) 10 mg [place] DAILY PRN chlorhexidine gluconate 0.12% PO finasteride 5 mg PO DAILY 90 days gemfibrozil 600 mg PO BID glucagon (GlucaGen HypoKit) 1 mg subcut Q20M PRN guaifenesin 200 mg PO Q4H PRN insulin glargine (Basaglar KwikPen U-100 Insulin) 15 units subcut QAM levothyroxine mcg PO lisinopril 2.5 mg PO DAILY lithium carbonate ER 300 mg PO BID lurasidone mg PO metformin 1,000 mg PO BID polyvinyl alcohol 1.4% (Artificial Tears (polyvinyl alcohol)) 1 drp ophthalmic (eye) BID pregabalin 600 mg PO BID saliva substitute combo no.9 (Biotene Dry Mouth Oral Rinse mouthwash) 15 mL PO DAILY sennosides (senna) 8.6 mg PO DAILY HPI Comments Details: Last is a 64-year-old male patient of Dr. Queen was accompanied by one of the staff members at [facility]. He has a PMH of hypertension, schizophrenia, hemorrhoids, diverticulosis, fatty liver, type 2 diabetes, hyperlipidemia, corneal scar and opacity, hypothyroidism, monocular esotropia of the left eye, and psychosis. He presents to the office today for follow-up. In discussion with the patient today reports to be doing and feeling well. He denies any bothersome urinary issues or concerns at this time. He reports compliance with finasteride as prescribed. Recent PSA results reviewed with the patient today as noted and trended below. 12/17 3.9, 04/18 4.3, 08/18 3.7, 02/17 2.9 Previous workup has included a retroperitoneal ultrasound 04/18 noting bilateral kidneys are normal in size, contour, and echogenicity. Bilateral kidneys with no hydronephrosis or renal calculi. Benign-appearing renal cysts measuring up to 1.5 cm on the left side that require no follow-up imaging per radiology report. The bladder appears thick walled and slightly trabeculated. Bladder jets are demonstrated. Pre void bladder volume is approximately 180 mL. Postvoid bladder volume is approximately 150 mL. Prostate gland with a volume of 72 mL. He discusses feeling timed/scheduled voiding has been helpful in decreasing his episodes of incontinence he had been experiencing. He currently denies any bothersome urinary issues or concerns. Staff accompanied by patient deny any bothersome urinary issues or concerns at this time as well. In office urinalysis results reviewed the patient today. PVR 49 mL. When asked he denies urinary urgency, urinary frequency, nocturia, hematuria, dysuria, foul smelling urine, changes to urinary stream, flank pain, fever, and or chills. He otherwise offers no other issues or concerns at this time. [facility] Medical History Essential (primary) hypertension Disorder of bone, unspecified Schizophreniform disorder Other hemorrhoids Diverticulosis of intestine, part unspecified, without perforation or abscess without bleeding Fatty (change of) liver, not elsewhere classified Hepatic fibrosis, advanced fibrosis Unspecified astigmatism, left eye Age-related nuclear cataract, left eye Other corneal scars and opacities Unsteadiness on feet Unspecified lack of coordination Concussion without loss of consciousness, sequela Type 2 diabetes mellitus without complications Unspecified psychosis not due to a substance or known physiological condition Corneal scar and opacity Acute cataract Hyperlipemia HTN (hypertension) Hypothyroidism Presbyopia Schizophrenia Monocular esotropia of left eye Hepatic fibrosis Diabetic acidosis, type II Psychosis Social History Alcohol intake: former Review of Systems Const Unobtainable due to mental status Physical Exam Const General: cooperative, healthy appearing, comfortable, no acute distress, well developed, alert and awake Orientation/consciousness: oriented to person Limitations: ambulation with walker HEENT Head: Yes normal to inspection, Yes normocephalic and Yes atraumatic Ears: hearing grossly normal bilaterally Eyes Other: Right eye with mo discoloration Neck Neck: Yes normal visual inspection and Yes trachea midline Chest Chest palpation & inspection: normal inspection of the chest Resp Effort & Inspection: normal respiratory effort and able to speak in complete se ntences Cardio Rate: regular rate GI Inspection: Yes normal to inspection General: Yes no CVA tenderness Back/Spine/Pelvis Back: no CVA tenderness Skin General skin exam: no rashes or lesions noted Neuro General: oriented to person Extrem General: Yes normal to inspection Psych Appearance: grossly normal and well kempt Speech and movement: Normal speech and movement present and Clear speech present Affect: normal affect Attitude: cooperative Thought process: Loose association thought process present Insight: Limited insight present (Psych) and Poor insight present (Psych) Judgement: Limited judgement present (Psych) and Poor judgement present (Psych) Office Procedures Post Void Residual Post Residual Void Post Void Residual (PVR): 49 [id number] Void Residual by ultrasound Results AMB Urinalysis, Automated UA Leukoctes 0 Tyesha/uL Last Edit by Yenni Arbeu MA on 02/10/25 10:28 UA Nitrite Negative Last Edit by Yenni Abreu MA on 02/10/25 10:28 UA Urobilinogen 0.2 mg/dL Last Edit by Yenni Abreu MA on 02/10/25 10:28 UA Protein 15 mg/dL Last Edit by Yenni Abreu MA on 02/10/25 10:28 UA pH 6.0 Last Edit by Yenni Abreu MA on 02/10/25 10:28 UA Blood Yovanny/uL Last Edit by Yenni Abreu MA on 02/10/25 10:28 UA Specific [place] 1.015 Last Edit by Yenni Abreu MA on 02/10/25 10:28 UA Ketone Negative Last Edit by Yenni Abreu MA on 02/10/25 10:28 UA Bilirubin 0 mg/dL Last Edit by Yenni Abreu MA on 02/10/25 10:28 UA Glucose 0 mg/dL Last Edit by Yenni Abreu MA on 02/10/25 10:28 Assessment & Plan Assessment & Plan (1) Renal cyst, left: Code(s): N28.1 - Cyst of kidney, acquired Category: Medical (2) Incontinence: Code(s): R32 - Unspecified urinary incontinence Category: Medical Plan In office urinalysis results reviewed with the patient today; as noted above. PVR 49 mL. Recent PSA results reviewed with the patient today; as noted above. Continue finasteride. Continue with timed/scheduled voiding. Patient and staff currently deny any bothersome urinary issues or concerns. He reports be happy with current voiding parameters. Will continue with surveillance monitoring. Will obtain PSA in 6 months. Will obtain renal ultrasound in 6 months. Follow-up in 6 months with PSA, imaging, and PVR; or sooner with any issues, concerns, and or questions. Orders: Orders AMB Urinalysis Automated Today Z13.9 - Encounter for screening, unspecified AMB Post Void Residual by ultrasound Today N40.0 - Benign prostatic hyperplasia without lower urinary tract symptoms US renal BI 6 Months N28.1 - Cyst of kidney, acquired Prostate Specific Antigen 6 Months N40.0 - Benign prostatic hyperplasia without lower urinary tract symptoms, R32 - Unspecified urinary incontinence, R97.20 - Elevated prostate specific antigen [PSA] Patient Instructions: The patient had an opportunity to ask questions regarding the treatment plan. All questions were answered. Physical exam, labs, and imaging were discussed and reviewed in detail. As well as risks, benefits, and discussion of treatment choices. No major barriers to understanding were identified. The patient expressed understanding and agreement with the above treatment plan. The patient was made aware they should contact our office by phone for worsening of their current condition, the appearance of new symptoms, or with any questions or concerns. Compliance is encouraged with any medications and follow up testing that is ordered. It is a privilege to be allowed the opportunity to participate in? your urological care.? Again, if you have any questions or concerns If you have any questions or concerns please do not hesitate to contact me. The office is [phone]. This note is constructed using voice recognition software. While every effort has been made to ensure accuracy supervisor open hearth stockyard errors may have been included. Yours sincerely, LATESHA Valdez-DANG Coding Level of Care Code Est Pt Level 3 (37460) Complex EM visit Add On G2211 Diagnoses Renal cyst, left N28.1 Incontinence R32 CPT Codes Post Residual Void - PVR CPT Code: 49640-Geqs Void Residual by ultrasound ([id number])
== END 2025-02-10 10:50 | disposition home or self-care (01) ==
PROVIDERS: PCP Hospitalist; Visit Provider Nurse Practitioner Family
DX: N28.1 Cyst of kidney, acquired (principal); R32 Unspecified urinary incontinence
CPT/HCPCS: 99213; G2211

== ENCOUNTER → 2025-02-10 10:30 | Outpatient (BNVA) | payer MEDICARE, MEDICAID, SELFPAY | PROVIDERS: PCP Hospitalist; Visit Provider Nurse Practitioner Family | DX: N28.1 Cyst of kidney, acquired (principal); R32 Unspecified urinary incontinence | CPT/HCPCS: 51798; 99212 ==

== ENCOUNTER 2025-04-21 08:48 | Outpatient (REF) | payer MEDICARE, MEDICAID, SELFPAY ==
--- NOTE | ~2025-04-21 | US_ITS ---
EXAMINATION: US ABDOMEN COMPLETE WITH LIVER ELASTOGRAPHY HISTORY: chronic Hep C, liver fibrosis TECHNIQUE: Real-time grayscale ultrasound imaging of the abdomen was performed and images were reviewed. COMPARISON: Comparison is made with the prior examination dated 01/10/2024. FINDINGS: Liver: The right lobe of the liver measures 13.4 cm in size. The left lobe of the liver measures 8.0 cm in size. The liver demonstrates normal homogeneous echotexture. No focal mass or intrahepatic biliary ductal dilatation is identified. There is normal hepatopedal flow in the portal vein. Ultrasound elastography of the liver was performed with 10 separate measurements of the liver parenchyma with the patient in the supine position. Measurements were obtained approximately 2 cm below Ly's capsule and perpendicular to the capsule. The median shear wave velocity is 1.33 m/s (previously 1.46 m/s). The interquartile range/median (IQR/median) is 0.26. Gallbladder and biliary tree: The gallbladder is unremarkable, without evidence of calculi, wall thickening, or pericholecystic fluid. There is no sonographic Warren sign. The common bile duct is normal in caliber measuring 2 mm. Kidneys: The right kidney measures 10.9 cm in length. The left kidney measures 9.3 cm in length and demonstrates multiple cysts measuring up to 9 mm in size. The kidneys are otherwise unremarkable, without evidence of solid masses, hydronephrosis, or calculi. Pancreas: The pancreatic head, neck, and body are unremarkable. The pancreatic tail is obscured by bowel gas. Spleen: The spleen is normal in size and contour, measuring 10.2 cm in length. Abdominal aorta and inferior vena cava: The visualized portions of the abdominal aorta and inferior vena cava are normal in caliber. There is no free fluid in the abdomen. US/US abdomen comp w elastography IMPRESSION: Multiple subcentimeter left renal cysts. Otherwise unremarkable abdominal ultrasound. The median shear wave velocity in the liver is 1.33 m/s, corresponding to a median liver stiffness of 5.49 kPa. The IQR/median value is 0.26. This is indicative of a poor quality data set, and the estimated liver stiffness may be unreliable. Findings are indicative of a low elastography value which rules out advanced chronic liver disease in asymptomatic patients. REFERENCE: Society of Radiologists in Ultrasound Liver Stiffness Thresholds (2020): LIVER STIFFNESS THRESHOLDS: *Shear wave velocity less than 1.3 m/s (Liver Stiffness equal or less than 5 kPa): High probability of being normal. *Shear wave velocity less than 1.7 m/s (Liver Stiffness less than 9 kPa): In the absence of other known clinical signs, rules out compensated advanced chronic liver disease. *Shear wave velocity between 1.7-2.1 m/s (Liver Stiffness 9-13 kPa): Suggestive of compensated advanced chronic liver disease but need further test for confirmation. *Shear wave velocity between 2.1-2.4 m/s (Liver Stiffness 13-17 kPa): Rules in compensated advanced chronic liver disease. *Shear wave velocity greater than 2.4 m/s (Liver Stiffness over 17 kPa): Suggestive of clinically significant portal hypertension. QUALITY OF DATA SET: SIGNIFICANT CHANGE FROM PRIOR EXAM: Significant change if liver stiffness measurement is 10% or greater from prior exam. OTHER CONSIDERATIONS: The stage of liver fibrosis may be overestimated in the setting of acute hepatitis, liver inflammation, elevated liver function tests, hepatic vascular congestion, obstructive cholestasis, non-fasting state, and infiltrative diseases such as amyloidosis and lymphoma. In some patients with NAFLD, the liver stiffness thresholds for compensated advanced chronic liver disease may be lower. In causes other than viral hepatitis and NAFLD, liver stiffness thresholds are not well established. Electronically signed by: Sriniavsa Pineda MD 04/21/2025 09:36 AM EDT
--- OUTSIDE RECORDS SUMMARY | 2025-04-21 09:15 | XMS_ITS | Encounter Summary ---
Author Organization [facility] Address [address] [place] [address] Care Team Providers Care Hydroelectric Plant Electrician Name Role Phone Emile Queen MD Primary Care Provider [phone] Encounter Details Date Type Department Care Team (Late st Contact Info) Description 03/09/2025 Lab Requisition [facility] - Main Lab [address] [place] [address] Emile Queen MD [address] [place] [address] Dr [address] [place], [place] Personal history of other infectious and parasitic diseases Social History Tobacco Use Types Packs/Day Years Used Date Smoking Tobacco: Never Assessed Sex and Gender Information Value Date Recorded Sex Assigned at Not on file Legal Sex Male 8:30 PM EST Gender Identity Not on file Sexual Orientation Not on file documented as of this encounter Plan of Treatment Not on file documented as of this encounter Procedures Procedure Name Priority Date/Time Associated Diagnosis Comments HEPATITIS C VIRUS QUANTITATIVE PCR Routine 03/09/2025 12:39 PM EDT Personal history of other infectious and parasitic diseases documented in this encounter Results * Hepatitis C virus quantitative molecular study (03/09/2025 12:39 PM EDT) HCV Qual Interp Not Detected Not Detected LAB MOLECULAR DIAGNOSTICS METHOD 03/10/2025 9:02 AM EDT [facility] Comment:HCV RNA not detected , unable to report quantitative results. Blood Venous blood specimen / Unknown 03/09/2025 12:39 PM EDT 03/09/2025 1:47 PM EDT us Emile Queen MD LAB BLOOD ORDERABLES Final Resul t [facility] [address] [place] [address], documented in this encounter Visit Diagnoses Diagnosis Personal history of other infectious and parasitic diseases documented in this encounter Care Teams Hydroelectric Plant Electrician Relationship Specialty Start Date End Date Emile Queen MD [address] [place] [address] Dr [address] [place], [place] PCP - General Internal Medicine 10/02/24 documented as of this encounter
--- OUTSIDE RECORDS SUMMARY | 2025-04-21 09:15 | XMS_ITS | Encounter Summary ---
Author Organization [facility] Address [address] [place] [address] Care Team Providers Care Solar Sales Estimator Name Role Phone Emile Queen MD Primary Care Provider [phone] Encounter Details Date Type Department Care Team (Late st Contact Info) Description 03/09/2025 Lab Requisition [facility] - Main Lab [address] [facility] [place] [address] Emile Queen MD [address] [place] [address] Dr [address] [place], [place] Hepatic fibrosis, advanced fibrosis Social History Tobacco Use Types Packs/Day Years [...] Procedure Name Priority Date/Time Associated Diagnosis Comments LIVER FIBROSIS, FIBROTEST-ACTITEST PANEL Routine 03/09/2025 7:08 AM EDT Hepatic fibrosis, advanced fibrosis RED - PLAIN Routine 03/09/2025 7:08 AM EDT Hepatic fibrosis, advanced fibrosis PROTHROMBIN TIME WITH INR Routine 03/09/2025 7:08 AM EDT Hepatic fibrosis, advanced fibrosis HEPATIC FUNCTION PANEL Routine 03/09/2025 7:08 AM EDT Hepatic fibrosis, advanced fibrosis documented in this encounter Results * Hepatic function panel (03/09/2025 7:08 AM EDT) Total Protein 7.9 6.0 - 8.0 g/dL LAB CHEMISTRY METHOD 03/11/2025 4:20 PM EDT [facility] Albumin 4.2 3.2 - 5.0 g/dL LAB CHEMISTRY METHOD 03/11/2025 4:20 PM EDT [facility] Total Bilirubin 0.3 0.0 - 1.4 mg/dL LAB CHEMISTRY METHOD 03/11/2025 4:20 PM EDT [facility] Bilirubin, Direct <0.1 0.0 - 0.3 mg/dL LAB CHEMISTRY METHOD 03/11/2025 4:20 PM EDT [facility] Bilirubin, Indirect LAB CHEMISTRY METHOD 03/11/2025 4:20 PM EDT [facility] Comment:Unable to calculate Indirect Bilirubin. ALT (SGPT) 21 10 - 60 unit/L LAB CHEMISTRY METHOD 03/11/2025 4:20 PM EDT [facility] AST (SGOT) 12 10 - 42 unit/L LAB CHEMISTRY METHOD 03/11/2025 4:20 PM EDT [facility] Alkaline Phosphatase 77 42 - 121 unit/L LAB CHEMISTRY METHOD 03/11/2025 4:20 PM EDT [facility] Blood Venous blood specimen / Unknown 03/09/2025 7:08 AM EDT 03/09/2025 8:15 AM EDT us Emile Queen MD LAB BLOOD ORDERABLES Final Resul t [facility] [address] [place] [address], * Red tube (03/09/2025 7:08 AM EDT) Extra Tube Hold for add-ons. 03/09/2025 10:01 AM EDT [facility] Comment:Auto resulted. Blood Venous blood specimen / Unknown 03/09/2025 7:08 AM EDT 03/09/2025 8:15 AM EDT us Emile Queen MD LAB BLOOD ORDERABLES Final Resul t Performing Organization Address [facility]/ZIP Co de Phone Number [facility] [address] [place] [address], [place] [phone] * Prothrombin time with INR (03/09/2025 7:08 AM EDT) Pathologist [facility] Protime 11.2 10.6 - 13.9 sec LAB COAGULATION METHOD 03/09/2025 8:44 AM EDT [facility] INR 0.9 LAB COAGULATION METHOD 03/09/2025 8:44 AM EDT [facility] Blood Venous blood specimen / Unknown 03/09/2025 7:08 AM EDT 03/09/2025 8:15 AM EDT us Emile Queen MD LAB BLOOD ORDERABLES Final Resul t Performing Organization Address [facility] de Phone Number [facility] [address] [place] [address], [place] [phone] * (ABNORMAL) Liver fibrosis, fibrotest-actitest panel (03/09/2025 7:08 AM EDT) [facility] Fibrosis Score 0.39 03/19/2025 1:43 AM EDT [facility] Fibrosis Stage F1-F2 03/19/2025 1:43 AM EDT [facility] Fibrosis Interpretation SEE NOTE 03/19/2025 1:43 AM EDT [facility] Comment: minimal fibrosis Fibro Test Score (f) Metavir Score f>=0 and f<=0.21 : F0 (no fibrosis) f>0.21 and f<=0.27 : F0-F1 (no fibrosis) f>0.27 and f<=0.31 : F1 (minimal fibrosis) f>0.31 and f<=0.48 : F1-F2 (minimal fibrosis) f>0.48 and f<=0.58 : F2 (moderate fibrosis) f>0.58 and f<=0.72 : F3 (advanced fibrosis) f>0.72 and f<=0.74 : F3-F4 (advanced fibrosis) f>0.74 and f<=1.00 : F4 (severe fibrosis) Necroinflammat Activity Score 0.04 03/19/2025 1:43 AM EDT [facility] Necroinflammat Activity Grade A0 03/19/2025 1:43 AM EDT [facility] Necroinflammat Interpretation SEE NOTE 03/19/2025 1:43 AM EDT [facility] Comment: no activity ActiTest Score (a) Metavir Score a>=0 and a<=0.17 : A0 (no activity) a>0.17 and a<=0.29 : A0-A1 (no activity) a>0.29 and a<=0.36 : A1 (minimal activity) a>0.36 and a<=0.52 : A1-A2 (minimal activity) a>0.52 and a<=0.60 : A2 (significant activity) a>0.60 and a<=0.62 : A2-A3 (significant activity) a>0.62 and a<=1.00 : A3 (severe activity) Bilirubin Total 0.3 0.2 - 1.2 mg/dL 03/19/2025 1:43 AM EDT [facility] Gamma Glutamyl Transferase (GGT) 11 3 - 70 U/L 03/19/2025 1:43 AM EDT [facility] Alanine Aminotransferase (ALT) 12 9 - 46 U/L 03/19/2025 1:43 AM EDT [facility] Dauue-9-Byfkumfmbddn n 287(H) 106 - 279 mg/dL 03/19/2025 1:43 AM EDT [facility] Haptoglobin 119 43 - 212 mg/dL 03/19/2025 1:43 AM EDT [facility] Apolipoprotein A1 108 94 - 176 mg/dL 03/19/2025 1:43 AM EDT [facility] Reference ID [id number] 03/19/2025 1:43 AM EDT [facility] Footnote SEE NOTE 03/19/2025 1:43 AM EDT [facility] Comment: The reliability of results is dependent on compliance with the preanalytical and analytical conditions recommended by [employer]. The tests have to be deferred for: acute hemolysis, acute hepatitis, acute inflammation, extra hepatic cholestasis. The advice of a specialist should be sought for interpretation in chronic hemolysis and Gilbert's syndrome. The test interpretation is not validated in liver transplant patients. Isolated extreme values of one of the components should lead to caution in interpreting the results. In case of discordance between a biopsy result and a test, it is recommended to seek the advice of a specialist. The causes of these discordances could be due to a flaw of the test or to a flaw in the biopsy: i.e. a liver biopsy has a 33% variability rate for one fibrosis stage. FibroTest is interpretable for chronic hepatitis B and C, alcoholic and non alcoholic steatosis. ActiTest is interpretable for chronic hepatitis B and C. The performance characteristics have been determined by [facility]. It has not been cleared or approved by the U.S. Food and Drug Administration. Performance characteristics refer to the analytical performance of the test. [employer], the associated logo, [employer] and all associated [employer]mundo are the registered trademarks of [employer]. All third democrat raymundo - (R) and (TM) - are the property of their respective owners. (C) [id number] [employer]. All rights reserved. Test Performed at: [facility] [address] [place] [address] Karthik Maynard MD, PhD, RAJENDRA Blood Venous blood specimen / Unknown 03/09/2025 7:08 AM EDT 03/09/2025 8:15 AM EDT us Emile Queen MD LAB BLOOD ORDERABLES Final Resul t [facility] [address] [place] [address] documented in this encounter Visit Diagnoses Diagnosis Hepatic fibrosis, advanced fibrosis documented in this encounter Care Teams Solar Sales Estimator Relationship Specialty Start Date End Date Emile Queen MD [address] [place] [address] Dr Gabriela Edmondson [place] PCP - General Internal Medicine 10/02/24 documented as of this encounter
--- OUTSIDE RECORDS SUMMARY | 2025-04-21 09:15 | XMS_ITS | Encounter Summary ---
Author Organization [employer] Address [address] [place] [address] Care Team Providers Care Supervisor Cloth Winding Name Role Phone Emile Queen MD Primary Care Provider [phone] Encounter Details Date Type Department Care Team (Late st Contact Info) Description 12/16/2024 Lab Requisition [facility] - Main Lab 299 [facility] [place] [address] Emile Queen MD [address] [place] [address] Dr [address] [place], [place] Type 2 diabetes mellitus without complications (CMS/HCC V24, CMS/HCC V28); Unspecified psychosis not due to a substance or known physiological condition (CMS/HCC V24, CMS/HCC V28); Hepatic fibrosis, advanced fibrosis Social History Tobacco [...] Procedure Name Priority Date/Time Associated Diagnosis Comments SST - GOLD Routine 12/16/2024 5:55 AM EDT Type 2 diabetes mellitus without complications (CMS/HCC V24, CMS/HCC V28) Unspecified psychosis not due to a substance or known physiological condition (CMS/HCC V24, CMS/HCC V28) Hepatic fibrosis, advanced fibrosis ALPHA FETOPROTEIN TUMOR MARKER Routine 12/16/2024 5:55 AM EDT Type 2 diabetes mellitus without complications (CMS/HCC V24, CMS/HCC V28) Unspecified psychosis not due to a substance or known physiological condition (CMS/HCC V24, CMS/HCC V28) Hepatic fibrosis, advanced fibrosis HEMOGLOBIN A1C Routine 12/16/2024 5:55 AM EDT Type 2 diabetes mellitus without complications (CMS/HCC V24, CMS/HCC V28) Unspecified psychosis not due to a substance or known physiological condition (CMS/HCC V24, CMS/HCC V28) Hepatic fibrosis, advanced fibrosis LITHIUM LEVEL Routine 12/16/2024 5:55 AM EDT Type 2 diabetes mellitus without complications (CMS/HCC V24, CMS/HCC V28) Unspecified psychosis not due to a substance or known physiological condition (CMS/HCC V24, CMS/HCC V28) Hepatic fibrosis, advanced fibrosis documented in this encounter Results * SST tube (12/16/2024 5:55 AM EDT) Pathologist [facility] Extra Tube Hold for add-ons. 12/16/2024 9:01 AM EDT [facility] Comment:Auto resulted. Blood Venous blood specimen / Unknown 12/16/2024 5:55 AM EDT 12/16/2024 7:04 AM EDT us Emile Queen MD LAB BLOOD ORDERABLES Final Resul t [facility] [address] [place] [address], * Alpha fetoprotein tumor marker (12/16/2024 5:55 AM EDT) [facility] AFP 6.5 0.0 - 8.0 ng/mL LAB CHEMISTRY METHOD 12/16/2024 9:43 AM EDT [facility] Blood Venous blood specimen / Unknown 12/16/2024 5:55 AM EDT 12/16/2024 7:04 AM EDT Narrative [facility] - 12/16/2024 9:43 AM EDT The Siemens Advia Centaur Chemiluminescent Immunoassay is used. Results obtained with different assay methods or kits cannot be used interchangeably. Results cannot be interpreted as absolute evidence of the presence or absence of malignant disease. us Emile Queen MD LAB BLOOD ORDERABLES Final Resul t Performing Organization Address [facility]/ZIP Co de Phone Number [facility] [address] [place] [address], [place] [phone] * [place] level (12/16/2024 5:55 AM EDT) [place] Level 0.9 0.6 - 1.2 mEq/L LAB CHEMISTRY METHOD 12/16/2024 7:48 AM EDT [facility] Blood Venous blood specimen / Unknown 12/16/2024 5:55 AM EDT 12/16/2024 7:04 AM EDT us Emile Queen MD LAB BLOOD ORDERABLES Final Resul t Performing Organization Address [facility] de Phone Number [facility] [address] [place] [address], [place] [phone] * (ABNORMAL) Hemoglobin A1c (12/16/2024 5:55 AM EDT) Hemoglobin A1C 6.8(H) <6.5 % LAB CHEMISTRY METHOD 12/16/2024 12:53 PM EDT [facility] Mean Bld Glu Estim. 148 mg/dL LAB CHEMISTRY METHOD 12/16/2024 12:53 PM EDT [facility] Blood Venous blood specimen / Unknown 12/16/2024 5:55 AM EDT 12/16/2024 7:04 AM EDT us Emile Queen MD LAB BLOOD ORDERABLES Final Resul t Performing Organization Address [facility] Co de Phone Number [facility] [address] [place] [address], [place] [phone] documented in this encounter Visit Diagnoses Diagnosis Type 2 diabetes mellitus without complications (CMS/HCC V24, CMS/HCC V28) Unspecified psychosis not due to a substance or known physiological condition (CMS/HCC V24, CMS/HCC V28) Hepatic fibrosis, advanced fibrosis documented in this encounter Care Teams Supervisor Cloth Winding Relationship Specialty Start Date End Date Emile Queen MD [address] [place] [address] Dr [address] [place] Edmondson PCP - General Internal Medicine 10/02/24 documented as of this encounter
--- OUTSIDE RECORDS SUMMARY | 2025-04-21 09:15 | XMS_ITS | Encounter Summary ---
Author Organization [facility] Address [address] [place] [address] Care Team Providers Care Calibration Checker Name Role Phone Emile Queen MD Primary Care Provider [phone] Encounter Details Date Type Department Care Team (Late st Contact Info) Description 10/02/2024 Lab Requisition [facility] - Main Lab [address] [place] [address] Emile Queen MD [address] [place] [address] Dr [address] [place] Hypothyroidism, unspecified Social History Tobacco Use Types Packs/Day Years [...] Procedure Name Priority Date/Time Associated Diagnosis Comments THYROID STIMULATING HORMONE Routine 10/02/2024 7:02 AM EST Hypothyroidism, unspecified THYROXINE FREE Routine 10/02/2024 7:02 AM EST Hypothyroidism, unspecified documented in this encounter Results * Thyroxine free (10/02/2024 7:02 AM EST) Free T4 0.92 0.70 - 1.80 ng/dL LAB CHEMISTRY METHOD 10/02/2024 8:20 AM EST [facility] Blood Venous blood specimen / Unknown 10/02/2024 7:02 AM EST 10/02/2024 7:35 AM EST us Emile Queen MD LAB BLOOD ORDERABLES Final Resul t [facility] [address] [place] [address], [place] [phone] * Thyroid stimulating hormone (10/02/2024 7:02 AM EST) TSH 0.85 0.40 - 4.00 mcIU/mL LAB CHEMISTRY METHOD 10/02/2024 8:21 AM EST [facility] Blood Venous blood specimen / Unknown 10/02/2024 7:02 AM EST 10/02/2024 7:35 AM EST us Emile Queen MD LAB BLOOD ORDERABLES Final Resul t [facility] [address] [place] [address], [place] [phone] documented in this encounter Visit Diagnoses Diagnosis Hypothyroidism, unspecified documented in this encounter Care Teams Calibration Checker Relationship Specialty Start Date End Date Emile Queen MD [address] [place] [address] Dr [address] [place], [place] PCP - General Internal Medicine 10/02/24 documented as of this encounter
--- OUTSIDE RECORDS SUMMARY | 2025-04-21 09:15 | XMS_ITS | Encounter Summary ---
Author Organization [facility] Address [address] [place] [address] Care Team Providers Care Technical Account Manager Name Role Phone Emile Queen MD Primary Care Provider [phone] Encounter Details Date Type Department Care Team (Late st Contact Info) Description 10/28/[address] [facility] [address] [facility] [place] [address] Emile Queen MD [address] [place] [address] [address] [place], [place] Encounter for screening for other metabolic disorders Social History Tobacco Use Types Packs/Day Years [...] Procedure Name Priority Date/Time Associated Diagnosis Comments COMPREHENSIVE METABOLIC PANEL Routine 10/28/2024 6:51 AM EST Encounter for screening for other metabolic disorders documented in this encounter Results * Comprehensive metabolic panel (10/28/2024 6:51 AM EST) Sodium 138 133 - 145 mmol/L LAB CHEMISTRY METHOD 10/28/2024 9:35 AM EST [facility] Potassium 5.0 3.5 - 5.5 mmol/L LAB CHEMISTRY METHOD 10/28/2024 9:35 AM EST [facility] Chloride 108 96 - 110 mmol/L LAB CHEMISTRY METHOD 10/28/2024 9:35 AM EST [facility] CO2 25 21 - 32 mmol/L LAB CHEMISTRY METHOD 10/28/2024 9:35 AM EST [facility] Anion Gap 5 3 - 11 LAB CHEMISTRY METHOD 10/28/2024 9:35 AM [facility] Glucose 95 70 - 100 mg/dL LAB CHEMISTRY METHOD 10/28/2024 9:35 AM [facility] BUN 18 5 - 25 mg/dL LAB CHEMISTRY METHOD 10/28/2024 9:35 AM [facility] Creatinine 1.04 0.70 - 1.30 mg/dL LAB CHEMISTRY METHOD 10/28/2024 9:35 AM [facility] eGFR 80 >=60 mL/min/1. 73m2 LAB CHEMISTRY METHOD 10/28/2024 9:35 AM [facility] Comment:Calculation based on the Chronic Kidney Disease Epidemiology Collaboration (CKD-EPI) equation refit without adjustment for race. BUN/Creatinine Ratio 17.3 LAB CHEMISTRY METHOD 10/28/2024 9:35 AM [facility] Calcium 9.9 8.5 - 10.5 mg/dL LAB CHEMISTRY METHOD 10/28/2024 9:35 AM [facility] AST (SGOT) 14 10 - 42 unit/L LAB CHEMISTRY METHOD 10/28/2024 9:35 AM [facility] ALT (SGPT) 17 10 - 60 unit/L LAB CHEMISTRY METHOD 10/28/2024 9:35 AM [facility] Alkaline Phosphatase 95 42 - 121 unit/L LAB CHEMISTRY METHOD 10/28/2024 9:35 AM [facility] Total Protein 7.9 6.0 - 8.0 g/dL LAB CHEMISTRY METHOD 10/28/2024 9:35 AM [facility] Albumin 4.1 3.2 - 5.0 g/dL LAB CHEMISTRY METHOD 10/28/2024 9:35 AM [facility] Total Bilirubin 0.4 0.0 - 1.4 mg/dL LAB CHEMISTRY METHOD 10/28/2024 9:35 AM [facility] Blood Venous blood specimen / Unknown 10/28/2024 6:51 AM EST 10/28/2024 8:47 AM EST us Emile Queen MD LAB BLOOD ORDERABLES Final Resul t [facility] [address] [place] [address], documented in this encounter Visit Diagnoses Diagnosis Encounter for screening for other metabolic disorders documented in this encounter Care Teams Technical Account Manager Relationship Specialty Start Date End Date Emile Queen MD [address] [place], [place] PCP - General Internal Medicine 10/02/24 documented as of this encounter
--- OUTSIDE RECORDS SUMMARY | 2025-04-21 09:15 | XMS_ITS | Encounter Summary ---
Author Organization [employer] Address [address] [place] [address] Care Team Providers Care Merchandising Execution Associate Name Role Phone Emile Queen MD Primary Care Provider [phone] Encounter Details Date Type Department Care Team (Late st Contact Info) Description 07/22/2024 Lab Requisition [facility] - Main Lab [address] [facility] [place] [address] Emile Queen MD [address] [place] [address] Dr [address] [place], [place] Type 2 diabetes mellitus without complications (CMS/HCC V24, CMS/HCC V28); Unspecified psychosis not due to a substance or known physiological condition (CMS/HCC V24, CMS/HCC V28) Social History Tobacco Use Types Packs/Day Years [...] Procedure Name Priority Date/Time Associated Diagnosis Comments LIPID PANEL WITH REFLEX TO DIRECT LDL Routine 07/22/2024 6:42 AM EST Type 2 diabetes mellitus without complications (CMS/HCC) Unspecified psychosis not due to a substance or known physiological condition (CMS/HCC) CBC WITH AUTO DIFFERENTIAL Routine 07/22/2024 6:42 AM EST Type 2 diabetes mellitus without complications (CMS/HCC) Unspecified psychosis not due to a substance or known physiological condition (CMS/HCC) CBC AND DIFFERENTIAL Routine 07/22/2024 6:42 AM EST Type 2 diabetes mellitus without complications (CMS/HCC) Unspecified psychosis not due to a substance or known physiological condition (CMS/HCC) BILIRUBIN, DIRECT Routine 07/22/2024 6:4 2 AM EST Type 2 diabetes mellitus without complications (CMS/HCC) Unspecified psychosis not due to a substance or known physiological condition (CMS/HCC) COMPREHENSIVE METABOLIC PANEL Routine 07/22/2024 6:42 AM EST Type 2 diabetes mellitus without complications (CMS/HCC) Unspecified psychosis not due to a substance or known physiological condition (CMS/HCC) documented in this encounter Results * CBC auto differential (07/22/2024 6:42 AM EST) [facility] WBC 5.3 4.8 - 10.8 K/mcL LAB HEMETOLOGY METHOD 07/22/2024 8:03 AM [facility] RBC 4.80 4.50 - 5.50 M/mcL LAB HEMETOLOGY METHOD 07/22/2024 8:03 AM [facility] Hemoglobin 14.9 13.5 - 17.5 g/dL LAB HEMETOLOGY METHOD 07/22/2024 8:03 AM [facility] Hematocrit 46.4 42.0 - 54.0 % LAB HEMETOLOGY METHOD 07/22/2024 8:03 AM [facility] MCV 96.1 79.0 - 98.0 FL LAB HEMETOLOGY METHOD 07/22/2024 8:03 AM [facility] MCH 30.8 27.0 - 32.0 pcg LAB HEMETOLOGY METHOD 07/22/2024 8:03 AM [facility] MCHC 32.1 32.0 - 37.0 g/dL LAB HEMETOLOGY METHOD 07/22/2024 8:03 AM [facility] RDW 13.1 11.0 - 15.0 % LAB HEMETOLOGY METHOD 07/22/2024 8:03 AM [facility] Platelets 261 130 - 400 K/mcL LAB HEMETOLOGY METHOD 07/22/2024 8:03 AM [facility] MPV 10.5 7.0 - 11.0 FL LAB HEMETOLOGY METHOD 07/22/2024 8:03 AM [facility] NRBC 0.0 <1.0 % LAB HEMETOLOGY METHOD 07/22/2024 8:03 AM [facility] NRBC Absolute 0.00 <0.10 K/mcL LAB HEMETOLOGY METHOD 07/22/2024 8:03 AM [facility] Neutrophils Relative 40.1 % LAB HEMETOLOGY METHOD 07/22/2024 8:03 AM [facility] Lymphocytes Relative 45.8 % LAB HEMETOLOGY METHOD 07/22/2024 8:03 AM [facility] Monocytes Relative 8.7 % LAB HEMETOLOGY METHOD 07/22/2024 8:03 AM [facility] Eosinophils Relative 4.2 % LAB HEMETOLOGY METHOD 07/22/2024 8:03 AM [facility] Basophils Relative 0.8 % LAB HEMETOLOGY METHOD 07/22/2024 8:03 AM [facility] Immature Granulocytes Relative 0.4 % LAB HEMETOLOGY METHOD 07/22/2024 8:03 AM [facility] Neutrophils Absolute 2.11 1.50 - 7.00 K/mcL LAB HEMETOLOGY METHOD 07/22/2024 8:03 AM [facility] Lymphocytes Absolute 2.41 1.00 - 5.00 K/mcL LAB HEMETOLOGY METHOD 07/22/2024 8:03 AM [facility] Monocytes Absolute 0.46 0.20 - 1.00 K/mcL LAB HEMETOLOGY METHOD 07/22/2024 8:03 AM [facility] Eosinophils Absolute 0.22 0.00 - 0.50 K/mcL LAB HEMETOLOGY METHOD 07/22/2024 8:03 AM [facility] Basophils Absolute 0.04 0.00 - 0.20 K/[facility] LAB HEMETOLOGY METHOD 07/22/2024 8:03 AM [facility] Immature Granulocytes Absolute 0.02 0.00 - 0.03 K/[facility] LAB HEMETOLOGY METHOD 07/22/2024 8:03 AM [facility] Blood Venous blood specimen / Unknown 07/22/2024 6:42 AM EST 07/22/2024 8:02 AM EST us Emile Queen MD LAB BLOOD ORDERABLES Final Resul t [facility] [address] [place] [address], [place] [phone] * (ABNORMAL) Lipid panel with reflex to direct LDL (07/22/2024 6:42 AM EST) Cholesterol 123 0 - 200 mg/dL LAB CHEMISTRY METHOD 07/22/2024 8:03 AM [facility] Triglycerides 196(H) 0 - 150 mg/dL LAB CHEMISTRY METHOD 07/22/2024 8:03 AM [facility] HDL 34(L) >=40 mg/dL LAB CHEMISTRY METHOD 07/22/2024 8:03 AM [facility] LDL Calculated 50 0 - 100 mg/dL LAB CHEMISTRY METHOD 07/22/2024 8:03 AM [facility] VLDL Cholesterol Frank 39.2 mg/dL LAB CHEMISTRY METHOD 07/22/2024 8:03 AM [facility] Non HDL Chol. (LDL+VLDL) 89 <145 mg/dL LAB CHEMISTRY METHOD 07/22/2024 8:03 AM [facility] Chol/HDL Ratio 3.6 0.0 - 4.4 LAB CHEMISTRY METHOD 07/22/2024 8:03 AM [facility] Blood Venous blood specimen / Unknown 07/22/2024 6:42 AM EST 07/22/2024 8:02 AM EST us Emile Queen MD LAB BLOOD ORDERABLES Final Resul t Performing Organization Address City/[facility]/ZIP Co de Phone Number [facility] [address] [place] [address], [place] [phone] * Bilirubin, direct (07/22/2024 6:42 AM EST) [facility] Bilirubin, Direct 0.1 0.0 - 0.3 mg/dL LAB CHEMISTRY METHOD 07/22/2024 8:03 AM [facility] Blood Venous blood specimen / Unknown 07/22/2024 6:42 AM EST 07/22/2024 8:02 AM EST us Emile Queen MD LAB BLOOD ORDERABLES Final Resul t Performing Organization Address [facility] Co de Phone Number [facility] [address] [place] [address], [place] [phone] * (ABNORMAL) Comprehensive metabolic panel (07/22/2024 6:42 AM EST) [facility] Sodium 139 133 - 145 mmol/L LAB CHEMISTRY METHOD 07/22/2024 8:03 AM [facility] Potassium 4.9 3.5 - 5.5 mmol/L LAB CHEMISTRY METHOD 07/22/2024 8:03 AM [facility] Chloride 107 96 - 110 mmol/L LAB CHEMISTRY METHOD 07/22/2024 8:03 AM [facility] CO2 27 21 - 32 mmol/L LAB CHEMISTRY METHOD 07/22/2024 8:03 AM [facility] Anion Gap 5 3 - 11 LAB CHEMISTRY METHOD 07/22/2024 8:03 AM [facility] Glucose 94 70 - 100 mg/dL LAB CHEMISTRY METHOD 07/22/2024 8:03 AM [facility] BUN 18 5 - 25 mg/dL LAB CHEMISTRY METHOD 07/22/2024 8:03 AM [facility] Creatinine 1.08 0.70 - 1.30 mg/dL LAB CHEMISTRY METHOD 07/22/2024 8:03 AM [facility] eGFR 77 >=60 mL/min/1. 73m2 LAB CHEMISTRY METHOD 07/22/2024 8:03 AM [facility] Comment:Calculation based on the Chronic Kidney Disease Epidemiology Collaboration (CKD-EPI) equation refit without adjustment for race. BUN/Creatinine Ratio 16.7 LAB CHEMISTRY METHOD 07/22/2024 8:03 AM [facility] Calcium 10.6(H) 8.5 - 10.5 mg/dL LAB CHEMISTRY METHOD 07/22/2024 8:03 AM [facility] AST (SGOT) 17 10 - 42 unit/L LAB CHEMISTRY METHOD 07/22/2024 8:03 AM [facility] ALT (SGPT) 21 10 - 60 unit/L LAB CHEMISTRY METHOD 07/22/2024 8:03 AM [facility] Alkaline Phosphatase 99 42 - 121 unit/L LAB CHEMISTRY METHOD 07/22/2024 8:03 AM [facility] Total Protein 8.1(H) 6.0 - 8.0 g/dL LAB CHEMISTRY METHOD 07/22/2024 8:03 AM [facility] Albumin 4.1 3.2 - 5.0 g/dL LAB CHEMISTRY METHOD 07/22/2024 8:03 AM [facility] Total Bilirubin 0.4 0.0 - 1.4 mg/dL LAB CHEMISTRY METHOD 07/22/2024 8:03 AM [facility] Blood Venous blood specimen / Unknown 07/22/2024 6:42 AM EST 07/22/2024 8:02 AM EST Emile Queen MD LAB BLOOD ORDERABLES Final Resul t [facility] [address] [place] [address], documented in this encounter Visit Diagnoses Diagnosis Type 2 diabetes mellitus without complications ([facility] V24, [facility] V28) Unspecified psychosis not due to a substance or known physiological condition ([facility] V24, [facility] V28) documented in this encounter Care Teams Merchandising Execution Associate Relationship Specialty Start Date End Date Emile Queen MD [address] [place] [address] Dr [address] [place], [place] PCP - General Internal Medicine 10/02/24 documented as of this encounter
--- OUTSIDE RECORDS SUMMARY | 2025-04-21 09:15 | XMS_ITS | Encounter Summary ---
Author Organization [facility] Address [address] [place] [address] Care Team Providers Care Manager Sales Name Role Phone Emile Queen MD Primary Care Provider [phone] Encounter Details Date Type Department Care Team (Late st Contact Info) Description 04/08/2025 Lab Requisition [facility] - Main Lab [address] [facility] [place] [address] Emile Queen MD [address] [place] [address] [address] [place] Hypothyroidism, unspecified Social History Tobacco Use Types [...] Associated Diagnosis Comments THYROID STIMULATING HORMONE Routine 04/08/2025 6:55 AM EDT Hypothyroidism, unspecified THYROXINE FREE Routine 04/08/2025 6:55 AM EDT Hypothyroidism, unspecified documented in this encounter Results * Thyroxine free (04/08/2025 6:55 AM EDT) Free T4 1.01 0.70 - 1.80 ng/dL LAB CHEMISTRY METHOD 04/08/2025 9:30 AM EDT [facility] Blood Venous blood specimen / Unknown 04/08/2025 6:55 AM EDT 04/08/2025 8:37 AM EDT us Emile Queen MD LAB BLOOD ORDERABLES Final Resul t [facility] [address] [place] [address], [place] [phone] * Thyroid stimulating hormone (04/08/2025 6:55 AM EDT) TSH 1.55 0.40 - 4.00 mcIU/mL LAB CHEMISTRY METHOD 04/08/2025 9:30 AM EDT [facility] Blood Venous blood specimen / Unknown 04/08/2025 6:55 AM EDT 04/08/2025 8:37 AM EDT us Emile Queen MD LAB BLOOD ORDERABLES Final Resul t [facility] [address] [place] [address], [place] [phone] documented in this encounter Visit Diagnoses Diagnosis Hypothyroidism, unspecified documented in this encounter Care Teams Manager Sales Relationship Specialty Start Date End Date Emile Queen MD [address] [place] [address] [address] [place] PCP - General Internal Medicine 10/02/24 documented as of this encounter
--- OUTSIDE RECORDS SUMMARY | 2025-04-21 09:15 | XMS_ITS | Encounter Summary ---
Author Organization [employer] Address [address] [place] [address] Care Team Providers Care A Auxiliary Name Role Phone Emile Queen MD Primary Care Provider [phone] Encounter Details Date Type Department Care Team (Late st Contact Info) Description 09/14/[address] [facility] - Main Lab [address] [facility] [place] [address] Emile Queen MD [address] [place] [address] [address] [place], [place] Type 2 diabetes mellitus without complications [...] Procedure Name Priority Date/Time Associated Diagnosis Comments HEMOGLOBIN A1C Routine 09/14/2024 7:09 AM EST Type 2 diabetes mellitus without complications (CMS/HCC) Unspecified psychosis not due to a substance or known physiological condition (CMS/HCC) LITHIUM LEVEL Routine 09/14/2024 7:09 AM EST Type 2 diabetes mellitus without complications (CMS/HCC) Unspecified psychosis not due to a substance or known physiological condition (CMS/HCC) documented in this encounter Results * Hemoglobin A1c (09/14/2024 7:09 AM EST) Hemoglobin A1C 6.2 <6.5 % LAB CHEMISTRY METHOD 09/14/2024 1:32 PM EST [facility] LAB Mean Bld Glu Estim. 131 mg/dL LAB CHEMISTRY METHOD 09/14/2024 1:32 PM EST [facility] Blood Venous blood specimen / Unknown 09/14/2024 7:09 AM EST 09/14/2024 7:46 AM EST us Emile Queen MD LAB BLOOD ORDERABLES Final Resul t Performing Organization Address City/[facility]/ZIP Co de Phone Number [facility] [address] [place] [address], [place] [phone] * [place] level (09/14/2024 7:09 AM EST) [place] Level 0.8 0.6 - 1.2 mEq/L LAB CHEMISTRY METHOD 09/14/2024 8:23 AM EST [facility] Blood Venous blood specimen / Unknown 09/14/2024 7:09 AM EST 09/14/2024 7:46 AM EST us Emile Queen MD LAB BLOOD ORDERABLES Final Resul t Performing Organization Address [facility] Co de Phone Number [facility] [address] [place] [address], [place] [phone] documented in this encounter Visit Diagnoses Diagnosis Type 2 diabetes mellitus without complications (CMS/HCC V24, CMS/HCC V28) Unspecified psychosis not due to a substance or known physiological condition (CMS/HCC V24, CMS/HCC V28) documented in this encounter Care Teams A Auxiliary Relationship Specialty Start Date End Date Emile Queen MD [address] [place] [address] [address] [place] PCP - General Internal Medicine 10/02/24 documented as of this encounter
--- OUTSIDE RECORDS SUMMARY | 2025-04-21 09:16 | XMS_ITS | Encounter Summary ---
Author Organization [facility] Address [address] [place] [address] Care Team Providers Care Tester Rocket Engine Name Role Phone Emile Queen MD Primary Care Provider [phone] Encounter Details Date Type Department Care Team (Late st Contact Info) Description 08/10/2024 Lab Requisition [facility] [address] [facility] [address] [place] [address] Emile Queen MD [address] [place] [address] [address] [place], [place] Benign prostatic hyperplasia without lower urinary tract symptoms Social History Tobacco Use Types Packs/Day Years [...] Procedure Name Priority Date/Time Associated Diagnosis Comments PSA TOTAL, FREE AND COMPLEXED, DIAGNOSTIC Routine 08/10/2024 6:41 AM EST Benign prostatic hyperplasia without lower urinary tract symptoms documented in this encounter Results * PSA total, free and complexed (08/10/2024 6:41 AM EST) PSA 3.70 0.00 - 4.00 ng/mL LAB CHEMISTRY METHOD 08/10/2024 8:13 AM EST [facility] PSA, Complexed 2.64 0.00 - 3.00 ng/mL LAB CHEMISTRY METHOD 08/10/2024 8:13 AM EST [facility] PSA, Free 1.1 ng/mL LAB CHEMISTRY METHOD 08/10/2024 8:13 AM EST [facility] PSA, Free Pct 29.7 >25.0 % LAB CHEMISTRY METHOD 08/10/2024 8:13 AM EST [facility] Blood Venous blood specimen / Unknown 08/10/2024 6:41 AM EST 08/10/2024 7:13 AM EST Narrative [facility] - 08/10/2024 8:13 AM EST Free PSA is a calculated value. The diagnostic usefulness of % free PSA has not been established in patients with Total PSA below 2.6 or above 10 ng/mL. This test was performed using the Centaur Chemiluminescent method. PSA values obtained with other methods cannot be used interchangeably. us Emile Queen MD LAB BLOOD ORDERABLES Final Resul t [facility] [address] [place] [address], documented in this encounter Visit Diagnoses Diagnosis Benign prostatic hyperplasia without lower urinary tract symptoms documented in this encounter Care Teams Tester Rocket Engine Relationship Specialty Start Date End Date Emile Queen MD [address] [place] [address] Dr [address] [place], [place] PCP - General Internal Medicine 10/02/24 documented as of this encounter
--- OUTSIDE RECORDS SUMMARY | 2025-04-21 09:16 | XMS_ITS | Encounter Summary ---
Author Organization [employer] Address [address] [place] [address] Care Team Providers Care Combatant Swimmer Name Role Phone Emile Queen MD Primary Care Provider [phone] Encounter Details Date Type Department Care Team (Late st Contact Info) Description 03/03/2025 Lab Requisition [facility] - Main Lab [address] [facility] [place] [address] Emile Queen MD [address] [place] [address] [address] [place], [place] Fatty (change of) liver, not elsewhere classified; Type 2 diabetes mellitus without complications (CMS/HCC V24, CMS/HCC V28); Other schizophrenia (CMS/HCC V24, CMS/HCC V28); Hepatic fibrosis, advanced [...] Procedure Name Priority Date/Time Associated Diagnosis Comments RED - PLAIN Routine 03/03/2025 7:06 AM EDT Fatty (change of) liver, not elsewhere classified Type 2 diabetes mellitus without complications (CMS/HCC V24, CMS/HCC V28) Other schizophrenia (CMS/HCC V24, CMS/HCC V28) Hepatic fibrosis, advanced fibrosis ALPHA FETOPROTEIN TUMOR MARKER Routine 03/03/2025 7:06 AM EDT Fatty (change of) liver, not elsewhere classified Type 2 diabetes mellitus without complications (CMS/HCC V24, CMS/HCC V28) Other schizophrenia (CMS/HCC V24, CMS/HCC V28) Hepatic fibrosis, advanced fibrosis HEMOGLOBIN A1C Routine 03/03/2025 7:06 AM EDT Fatty (change of) liver, not elsewhere classified Type 2 diabetes mellitus without complications (CMS/HCC V24, CMS/HCC V28) Other schizophrenia (CMS/HCC V24, CMS/HCC V28) Hepatic fibrosis, advanced fibrosis LITHIUM LEVEL Routine 03/03/2025 7:06 AM EDT Fatty (change of) liver, not elsewhere classified Type 2 diabetes mellitus without complications (CMS/HCC V24, CMS/HCC V28) Other schizophrenia (CMS/HCC V24, CMS/HCC V28) Hepatic fibrosis, advanced fibrosis documented in this encounter Results * Red tube (03/03/2025 7:06 AM EDT) Pathologist [facility] Extra Tube Hold for add-ons. 03/06/2025 10:01 AM EDT [facility] Comment:Auto resulted. Blood Venous blood specimen / Unknown 03/03/2025 7:06 AM EDT 03/03/2025 7:40 AM EDT us Emile Queen MD LAB BLOOD ORDERABLES Final Resul t [facility] [address] [place] [address], * (ABNORMAL) Alpha fetoprotein tumor marker (03/03/2025 7:06 AM EDT) [facility] AFP 8.1(H) 0.0 - 8.0 ng/mL LAB CHEMISTRY METHOD 03/03/2025 11:25 AM EDT [facility] Blood Venous blood specimen / Unknown 03/03/2025 7:06 AM EDT 03/03/2025 7:40 AM EDT Narrative [facility] - 03/03/2025 11:25 AM EDT The Siemens Advia Centaur Chemiluminescent Immunoassay is used. Results obtained with different assay methods or kits cannot be used interchangeably. Results cannot be interpreted as absolute evidence of the presence or absence of malignant disease. us Emile Queen MD LAB BLOOD ORDERABLES Final Resul t Performing Organization Address [facility] [address]/ZIP Co de Phone Number [facility] [address] [place] [address], [place] [phone] * [place] level (03/03/2025 7:06 AM EDT) [place] Level 0.8 0.6 - 1.2 mEq/L LAB CHEMISTRY METHOD 03/03/2025 8:45 AM EDT [facility] Blood Venous blood specimen / Unknown 03/03/2025 7:06 AM EDT 03/03/2025 7:40 AM EDT us Emile Queen MD LAB BLOOD ORDERABLES Final Resul t Performing Organization Address [facility] de Phone Number [facility] [address] [place] [address], [place] [phone] * (ABNORMAL) Hemoglobin A1c (03/03/2025 7:06 AM EDT) Hemoglobin A1C 7.1(H) <6.5 % LAB CHEMISTRY METHOD 03/03/2025 9:43 AM EDT [facility] Mean Bld Glu Estim. 157 mg/dL LAB CHEMISTRY METHOD 03/03/2025 9:43 AM EDT [facility] Blood Venous blood specimen / Unknown 03/03/2025 7:06 AM EDT 03/03/2025 7:40 AM EDT us Emile Queen MD LAB BLOOD ORDERABLES Final Resul t Performing Organization Address [facility] [address]/[facility] Co de Phone Number [facility] [address] [place] [address], [place] [phone] documented in this encounter Visit Diagnoses Diagnosis Fatty (change of) liver, not elsewhere classified Type 2 diabetes mellitus without complications (CMS/HCC V24, CMS/HCC V28) Other schizophrenia (CMS/HCC V24, CMS/HCC V28) Hepatic fibrosis, advanced fibrosis documented in this encounter Care Teams Combatant Swimmer Relationship Specialty Start Date End Date Emile Queen MD [address] [place] [address] Dr [address] [place] PCP - General Internal Medicine 10/02/24 documented as of this encounter
--- OUTSIDE RECORDS SUMMARY | 2025-04-21 09:16 | XMS_ITS | Encounter Summary ---
Author Organization [facility] Address [address] [place] [address] Care Team Providers Care Quality Control Coordinator Name Role Phone Emile Queen MD Primary Care Provider [phone] Encounter Details Date Type Department Care Team (Late st Contact Info) Description 02/03/2025 Lab Requisition [facility] - Main Lab [address] [facility] [place] [address] Emile Queen MD [address] [place] [address] Dr [address] [place] Hepatic fibrosis, advanced fibrosis; Hyperlipidemia, unspecified Social History Tobacco Use Types Packs/Day [...] Procedure Name Priority Date/Time Associated Diagnosis Comments PROSTATE SPECIFIC ANTIGEN SCREEN Routine 02/03/2025 7:05 AM EDT Hepatic fibrosis, advanced fibrosis Hyperlipidemia, unspecified LIPID PANEL WITH REFLEX TO DIRECT LDL Routine 02/03/2025 7:05 AM EDT Hepatic fibrosis, advanced fibrosis Hyperlipidemia, unspecified CBC WITH AUTO DIFFERENTIAL Routine 02/03/2025 7:05 AM EDT Hepatic fibrosis, advanced fibrosis Hyperlipidemia, unspecified CBC AND DIFFERENTIAL Routine 02/03/2025 7:05 AM EDT Hepatic fibrosis, advanced fibrosis Hyperlipidemia, unspecified COMPREHENSIVE METABOLIC PANEL Routine 02/03/2025 7:05 AM EDT Hepatic fibrosis, advanced fibrosis Hyperlipidemia, unspecified documented in this encounter Results * Prostate specific antigen screen (02/03/2025 7:05 AM EDT) Pathologist [facility] PSA 2.85 0.00 - 4.00 ng/mL LAB CHEMISTRY METHOD 02/09/2025 6:[address] [facility] Blood Venous blood specimen / Unknown 02/03/2025 7:05 AM EDT 02/03/2025 8:[address] [facility] - 02/09/2025 6:09 PM EDT The Siemens Advia Centaur Chemiluminescent Immunoassay is used. Results obtained with different assay methods or kits cannot be used interchangeably. Results cannot be interpreted as absolute evidence of the presence or absence of malignant disease. us Emile Queen MD LAB BLOOD ORDERABLES Final Resul t [facility] [address] [place] [address], * (ABNORMAL) CBC auto differential (02/03/2025 7:05 AM EDT) [facility] WBC 5.0 4.8 - 10.8 K/mcL LAB HEMETOLOGY METHOD 02/03/2025 8:[address] [facility] RBC 4.60 4.50 - 5.50 M/mcL LAB HEMETOLOGY METHOD 02/03/2025 8:[address] [facility] Hemoglobin 14.6 13.5 - 17.5 g/dL LAB HEMETOLOGY METHOD 02/03/2025 8:[address] [facility] Hematocrit 46.1 42.0 - 54.0 % LAB HEMETOLOGY METHOD 02/03/2025 8:[address] [facility] MCV 99.4(H) 79.0 - 98.0 FL LAB HEMETOLOGY METHOD 02/03/2025 8:49 AM [facility] MCH 31.5 27.0 - 32.0 pcg LAB HEMETOLOGY METHOD 02/03/2025 8:49 AM [facility] MCHC 31.7(L) 32.0 - 37.0 g/dL LAB HEMETOLOGY METHOD 02/03/2025 8:49 AM [facility] RDW 13.4 11.0 - 15.0 % LAB HEMETOLOGY METHOD 02/03/2025 8:49 AM [facility] Platelets 261 130 - 400 K/mcL LAB HEMETOLOGY METHOD 02/03/2025 8:49 AM [facility] MPV 10.8 7.0 - 11.0 FL LAB HEMETOLOGY METHOD 02/03/2025 8:49 AM [facility] NRBC 0.0 <1.0 % LAB HEMETOLOGY METHOD 02/03/2025 8:49 AM [facility] NRBC Absolute 0.00 <0.10 K/mcL LAB HEMETOLOGY METHOD 02/03/2025 8:49 AM [facility] Neutrophils Relative 36.0 % LAB HEMETOLOGY METHOD 02/03/2025 8:49 AM [facility] Lymphocytes Relative 49.1 % LAB HEMETOLOGY METHOD 02/03/2025 8:49 AM [facility] Monocytes Relative 9.3 % LAB HEMETOLOGY METHOD 02/03/2025 8:49 AM [facility] Eosinophils Relative 4.6 % LAB HEMETOLOGY METHOD 02/03/2025 8:49 AM [facility] Basophils Relative 0.6 % LAB HEMETOLOGY METHOD 02/03/2025 8:49 AM [facility] Immature Granulocytes Relative 0.4 % LAB HEMETOLOGY METHOD 02/03/2025 8:49 AM [facility] Neutrophils Absolute 1.81 1.50 - 7.00 K/mcL LAB HEMETOLOGY METHOD 02/03/2025 8:[address] [facility] Lymphocytes Absolute 2.47 1.00 - 5.00 K/mcL LAB HEMETOLOGY METHOD 02/03/2025 8:[address] [facility] Monocytes Absolute 0.47 0.20 - 1.00 K/mcL LAB HEMETOLOGY METHOD 02/03/2025 8:[address] [facility] Eosinophils Absolute 0.23 0.00 - 0.50 K/mcL LAB HEMETOLOGY METHOD 02/03/2025 8:[address] [facility] Basophils Absolute 0.03 0.00 - 0.20 K/mcL LAB HEMETOLOGY METHOD 02/03/2025 8:[address] [facility] Immature Granulocytes Absolute 0.02 0.00 - 0.03 K/mcL LAB HEMETOLOGY METHOD 02/03/2025 8:[address] [facility] Blood Venous blood specimen / Unknown 02/03/2025 7:05 AM EDT 02/03/2025 8:00 AM EDT us Emile Queen MD LAB BLOOD ORDERABLES Final Resul t [facility] [address] [place] [address], * (ABNORMAL) Lipid panel with reflex to direct LDL (02/03/2025 7:05 AM EDT) Cholesterol 143 0 - 200 mg/dL LAB CHEMISTRY METHOD 02/03/2025 9:[address] [facility] Triglycerides 133 0 - 150 mg/dL LAB CHEMISTRY METHOD 02/03/2025 9:[address] [facility] HDL 33(L) >=40 mg/dL LAB CHEMISTRY METHOD 02/03/2025 9:[address] [facility] LDL Calculated 83 0 - 100 mg/dL LAB CHEMISTRY METHOD 02/03/2025 9:12 AM [facility] VLDL Cholesterol Frank 26.6 mg/dL LAB CHEMISTRY METHOD 02/03/2025 9:12 AM [facility] Non HDL Chol. (LDL+VLDL) 110 <145 mg/dL LAB CHEMISTRY METHOD 02/03/2025 9:12 AM [facility] Chol/HDL Ratio 4.3 0.0 - 4.4 LAB CHEMISTRY METHOD 02/03/2025 9:12 AM [facility] Blood Venous blood specimen / Unknown 02/03/2025 7:05 AM EDT 02/03/2025 8:00 AM EDT us Emile Queen MD LAB BLOOD ORDERABLES Final Resul t [facility] [address] [place] [address], * (ABNORMAL) Comprehensive metabolic panel (02/03/2025 7:05 AM EDT) Sodium 137 133 - 145 mmol/L LAB CHEMISTRY METHOD 02/03/2025 9:12 AM [facility] Potassium 4.9 3.5 - 5.5 mmol/L LAB CHEMISTRY METHOD 02/03/2025 9:12 AM [facility] Chloride 107 96 - 110 mmol/L LAB CHEMISTRY METHOD 02/03/2025 9:12 AM [facility] CO2 27 21 - 32 mmol/L LAB CHEMISTRY METHOD 02/03/2025 9:12 AM [facility] Anion Gap 3 3 - 11 LAB CHEMISTRY METHOD 02/03/2025 9:12 AM [facility] Glucose 112(H) 70 - 100 mg/dL LAB CHEMISTRY METHOD 02/03/2025 9:12 AM [facility] BUN 20 5 - 25 mg/dL LAB CHEMISTRY METHOD 02/03/2025 9:12 AM [facility] Creatinine 0.97 0.70 - 1.30 mg/dL LAB CHEMISTRY METHOD 02/03/2025 9:12 AM [facility] eGFR 87 >=60 mL/min/1. 73m2 LAB CHEMISTRY METHOD 02/03/2025 9:12 AM [facility] Comment:Calculation based on the Chronic Kidney Disease Epidemiology Collaboration (CKD-EPI) equation refit without adjustment for race. BUN/Creatinine Ratio 20.6 LAB CHEMISTRY METHOD 02/03/2025 9:12 AM [facility] Calcium 10.1 8.5 - 10.5 mg/dL LAB CHEMISTRY METHOD 02/03/2025 9:12 AM [facility] AST (SGOT) 11 10 - 42 unit/L LAB CHEMISTRY METHOD 02/03/2025 9:12 AM [facility] ALT (SGPT) 22 10 - 60 unit/L LAB CHEMISTRY METHOD 02/03/2025 9:12 AM [facility] Alkaline Phosphatase 93 42 - 121 unit/L LAB CHEMISTRY METHOD 02/03/2025 9:12 AM [facility] Total Protein 8.0 6.0 - 8.0 g/dL LAB CHEMISTRY METHOD 02/03/2025 9:12 AM [facility] Albumin 4.1 3.2 - 5.0 g/dL LAB CHEMISTRY METHOD 02/03/2025 9:12 AM [facility] Total Bilirubin 0.3 0.0 - 1.4 mg/dL LAB CHEMISTRY METHOD 02/03/2025 9:12 AM [facility] Blood Venous blood specimen / Unknown 02/03/2025 7:05 AM EDT 02/03/2025 8:00 AM EDT us Emile Queen MD LAB BLOOD ORDERABLES Final Resul t [facility] [address] [place] [address], documented in this encounter Visit Diagnoses Diagnosis Hepatic fibrosis, advanced fibrosis Hyperlipidemia, unspecified documented in this encounter Care Teams Quality Control Coordinator Relationship Specialty Start Date End Date Emile Queen MD [address] [place], [place] PCP - General Internal Medicine 10/02/24 documented as of this encounter
--- OUTSIDE RECORDS SUMMARY | 2025-04-21 09:16 | XMS_ITS | Clinical Summary ---
Author Organization [facility] Address [address] [place] [address] Phone Care Team Providers Care Fleet Salesperson Name Role Phone Emile Queen MD Primary Care Provider [phone] Encounters Date Type Department Care Team Description 04/08/[address] [facility] [address] [place] [phone] Emile Queen MD Hypothyroidism, unspecified 03/09/[address] [facility] [address] [place] [phone] Emile Queen MD Personal history of other infectious and parasitic diseases 03/09/[address] [facility] [address] [place] [phone] Emile Queen MD Hepatic fibrosis, advanced fibrosis 03/03/[address] [facility] [address] [place] [phone] Emile Queen MD Fatty (change of) liver, not elsewhere classified; Type 2 diabetes mellitus without complications (CMS/HCC V24, CMS/HCC V28); Other schizophrenia (CMS/HCC V24, CMS/HCC V28); Hepatic fibrosis, advanced fibrosis 02/03/[address] [facility] [address] [place] [phone] Emile Queen MD Hepatic fibrosis, advanced fibrosis; Hyperlipidemia, unspecified from Last 3 Months Social History Tobacco Use Types Packs/Day Years Used Date Smoking Tobacco: Never Assessed Sex and Gender Information Value Date Recorded Sex Assigned at Not on file Legal Sex Male 8:30 PM EST Gender Identity Not on file Sexual Orientation Not on file Plan of Treatment Health Maintenance Due Date Last Done Comments Diabetes: Annual Foot Exam 1969 Diabetes: Annual Retina Eye Exam 1969 DTaP,Tdap,and Td Vaccines (1 - Tdap) 1978 Pneumococcal Vaccine: 50+ Years (1 of 2 - PCV) 1978 Zoster Vaccines (1 of 2) 2009 Abdominal Aortic Aneurysm (AAA) Screen 07/28/2022 Colorectal Cancer Screening: Colonoscopy 07/28/2022 Medicare Annual Wellness Visit 07/28/2022 Social Influencers of Health Screening 07/28/2022 COVID-19 Vaccine (1 - 2023-2 5 season) 2024 Diabetes: Annual Urine Albumin-Creatinine Ratio (uACR) 07/22/2024 Falls Risk Assessment 2024 Depression Screening 08/26/2024 Influenza Vaccine (#1) 2025 Diabetes: Blood Sugar Contro l Test (HGBA1C) 09/03/2025 03/03/2025, 12/16/2024, 09/14/2024 Diabetes: Annual GFR (Glomerular Filtration Rate) 02/03/2026 02/03/2025, 10/28/2024, 07/22/2024 Cholesterol Screening (Lipid Panel) 02/03/2030 02/03/2025, 07/22/2024 RSV Immunization Adult Patients (1 - 1-dose 75+ series) 2034 Hepatitis C Screening Completed 03/09/2025 HIB Vaccines Aged Out No longer eligi ble based on patient's age to complete this topic HPV Vaccines Aged Out No longer eligi ble based on patient's age to complete this topic Hepatitis A Vaccines Aged Out No long er eligible based on patient's age to complete this topic Hepatitis B Vaccines Aged Out No long er eligible based on patient's age to complete this topic IPV Vaccines Aged Out No longer eligi ble based on patient's age to complete this topic MMR Vaccines Aged Out No longer eligi ble based on patient's age to complete this topic Meningococcal ACWY Vaccine Aged Out N o longer eligible based on patient's age to complete this topic Meningococcal B Vaccine Aged Out No l onger eligible based on patient's age to complete this topic RSV Immunization Patients Under 20 months Aged Out No longer eligible b ased on patient's age to complete this topic Varicella Vaccines Aged Out No longer eligible based on patient's age to complete this topic Procedures Procedure Name Priority Date/Time Associated Diagnosis Comments THYROXINE FREE Routine 04/08/2025 6:55 AM EDT Hypothyroidism, unspecified THYROID STIMULATING HORMONE Routine 04/08/2025 6:55 AM EDT Hypothyroidism, unspecified HEPATITIS C VIRUS QUANTITATIVE PCR Routine 03/09/2025 12:39 PM EDT Personal history of other infectious and parasitic diseases HEPATIC FUNCTION PANEL Routine 03/09/2025 7:08 AM EDT Hepatic fibrosis, advanced fibrosis RED - PLAIN Routine 03/09/2025 7:08 AM EDT Hepatic fibrosis, advanced fibrosis PROTHROMBIN TIME WITH INR Routine 03/09/2025 7:08 AM EDT Hepatic fibrosis, advanced fibrosis LIVER FIBROSIS, FIBROTEST-ACTITEST PANEL Routine 03/09/2025 7:08 AM EDT Hepatic fibrosis, advanced fibrosis RED - PLAIN Routine 03/03/2025 7:06 AM [...] classified Type 2 diabetes mellitus without complications ([facility]/HCC V24, [facility]/HCC V28) Other schizophrenia (CMS/HCC V24, [facility]/HCC V28) Hepatic fibrosis, advanced fibrosis PROSTATE SPECIFIC ANTIGEN SCREEN Routine 02/03/2025 7:05 [...] EDT Hepatic fibrosis, advanced fibrosis Hyperlipidemia, unspecified from Last 3 Months Results * Thyroid stimulating hormone (04/08/2025 6:55 AM EDT) Pathologist [facility] TSH 1.55 0.40 - 4.00 mcIU/mL LAB CHEMISTRY METHOD 04/08/2025 9:30 AM EDT [facility] Blood Venous blood specimen / Unknown 04/08/2025 6:55 AM EDT 04/08/2025 8:37 AM EDT us Emile Queen MD LAB BLOOD ORDERABLES Final Resul t [facility] [address] [place] [address], * Thyroxine free (04/08/2025 6:55 AM EDT) Free T4 1.01 0.70 - 1.80 ng/dL LAB CHEMISTRY METHOD 04/08/2025 9:30 AM EDT [facility] Blood Venous blood specimen / Unknown 04/08/2025 6:55 AM EDT 04/08/2025 8:37 AM EDT us Emile Queen MD LAB BLOOD ORDERABLES Final Resul t Performing Organization Address [facility]/ZIP Co de Phone Number [facility] [address] [place] [address], [place] [phone] * Hepatitis C virus quantitative molecular study (03/09/2025 12:39 PM EDT) Pathologist [facility] HCV Qual Interp Not Detected Not Detected LAB MOLECULAR DIAGNOSTICS METHOD 03/10/2025 9:02 AM EDT [facility] Comment:HCV RNA not detected , unable to report quantitative results. Blood Venous blood specimen / Unknown 03/09/2025 12:39 PM EDT 03/09/2025 1:47 PM EDT us Emile Quene MD LAB BLOOD ORDERABLES Final Resul t Performing Organization Address [facility] Co de Phone Number [facility] [address] [place] [address], [place] [phone] * (ABNORMAL) Liver fibrosis, fibrotest-actitest panel (03/09/2025 7:08 AM EDT) Fibrosis Score 0.39 03/19/2025 1:43 AM EDT [...] U/L 03/19/2025 1:43 AM EDT [facility] [id number]-[id number]-[id number] n 287(H) 106 - 279 mg/dL 03/19/2025 1:43 AM EDT [facility] Haptoglobin 119 43 - 212 mg/dL 03/19/2025 1:43 AM EDT [facility] Apolipoprotein A1 108 94 - 176 mg/dL 03/19/2025 1:43 AM EDT [facility] Reference ID [id number] 03/19/2025 1:43 AM EDT [facility] Footnote SEE NOTE 03/19/2025 1:43 AM EDT [facility] Comment: The reliability of results is dependent on compliance with the preanalytical and analytical conditions recommended by [employer]. The tests have to be deferred for: [...] The performance characteristics have been determined by [facility]. It has not been cleared or approved by the U.S. Food and Drug Administration. Performance characteristics refer to the analytical performance of the test. [employer], the associated logo, [employer] and all associated [employer] raymundo are the registered trademarks of [employer]. All third constitution party raymundo - (R) and (TM) - are the property of their respective owners. (C) [id number] [employer]. All rights reserved. Test Performed at: [facility] [address] [place] [id number] Karthik Maynard MD, PhD, RAJENDRA Blood Venous blood specimen / Unknown 03/09/2025 7:08 AM EDT 03/09/2025 8:15 AM EDT us Emile Queen MD LAB BLOOD ORDERABLES Final Resul t [facility] [address] [place] [address] * Red tube (03/09/2025 7:08 AM EDT) Only the most recent of2 resultswithin the time period is included. Extra Tube Hold for add-ons. 03/09/2025 10:01 AM EDT [facility] Comment:Auto resulted. Blood Venous blood specimen / Unknown 03/09/2025 7:08 AM EDT 03/09/2025 8:15 AM EDT us Emile Queen MD LAB BLOOD ORDERABLES Final Resul t Performing Organization Address [facility]/ZIP Co de Phone Number [facility] [address] [place] [address], [place] [phone] * Prothrombin time with INR (03/09/2025 7:08 AM EDT) [facility] Protime 11.2 10.6 - 13.9 sec LAB COAGULATION METHOD 03/09/2025 8:44 AM EDT [facility] INR 0.9 LAB COAGULATION METHOD 03/09/2025 8:44 AM EDT [facility] Blood Venous blood specimen / Unknown 03/09/2025 7:08 AM EDT 03/09/2025 8:15 AM EDT us Emile Queen MD LAB BLOOD ORDERABLES Final Resul t Performing Organization Address [facility] Co de Phone Number [facility] [address] [place] [address], [place] [phone] * Hepatic function panel (03/09/2025 7:08 AM EDT) Pathologist [facility] Total Protein 7.9 6.0 - 8.0 g/dL LAB CHEMISTRY METHOD 03/11/2025 4:20 PM EDT [facility] Albumin 4.2 3.2 - 5.0 g/dL LAB CHEMISTRY METHOD 03/11/2025 4:20 PM EDT [facility] Total Bilirubin 0.3 0.0 - 1.4 mg/dL LAB CHEMISTRY METHOD 03/11/2025 4:20 PM EDT [facility] Bilirubin, Direct <0.1 0.0 - 0.3 mg/dL LAB CHEMISTRY METHOD 03/11/2025 4:20 PM EDT [facility] Bilirubin, Indirect LAB CHEMISTRY METHOD 03/11/2025 4:20 PM EDT [facility] Comment:Unable to calculate Indirect Bilirubin. ALT (SGPT) 21 10 - 60 unit/L LAB CHEMISTRY METHOD 03/11/2025 4:20 PM EDT [facility] AST (SGOT) 12 10 - 42 unit/L LAB CHEMISTRY METHOD 03/11/2025 4:20 PM EDT [facility] Alkaline Phosphatase 77 42 - 121 unit/L LAB CHEMISTRY METHOD 03/11/2025 4:20 PM EDT [facility] Blood Venous blood specimen / Unknown 03/09/2025 7:08 AM EDT 03/09/2025 8:15 AM EDT us Emile Queen MD LAB BLOOD ORDERABLES Final Resul t [facility] [address] [place] [address], [place] [phone] * (ABNORMAL) Alpha fetoprotein tumor marker (03/03/2025 7:06 AM EDT) AFP 8.1(H) 0.0 - 8.0 ng/mL LAB CHEMISTRY METHOD 03/03/2025 11:25 AM EDT [facility] Blood Venous blood specimen / Unknown 03/03/2025 7:06 AM EDT 03/03/2025 7:40 AM EDT Narrative [facility] - 03/03/2025 11:25 AM EDT The Siemens Advia Centaur Chemiluminescent Immunoassay is used. Results obtained with different assay methods or kits cannot be used interchangeably. Results cannot be interpreted as absolute evidence of the presence or absence of malignant disease. us Emile Queen MD LAB BLOOD ORDERABLES Final Resul t Performing Organization Address City/[facility]/[place] de Phone Number [facility] [address] [place] [address], [place] [phone] * (ABNORMAL) Hemoglobin A1c (03/03/2025 7:06 AM EDT) Hemoglobin A1C 7.1(H) <6.5 % LAB CHEMISTRY METHOD 03/03/2025 9:43 AM EDT [facility] Mean Bld Glu Estim. 157 mg/dL LAB CHEMISTRY METHOD 03/03/2025 9:43 AM EDT [facility] Blood Venous blood specimen / Unknown 03/03/2025 7:06 AM EDT 03/03/2025 7:40 AM EDT us Emile Queen MD LAB BLOOD ORDERABLES Final Resul t Performing Organization Address [facility]/[place] de Phone Number [facility] [address] [place] [address], [place] [phone] * [place] level (03/03/2025 7:06 AM EDT) [facility] [place] Level 0.8 0.6 - 1.2 mEq/L LAB CHEMISTRY METHOD 03/03/2025 8:45 AM EDT [facility] Blood Venous blood specimen / Unknown 03/03/2025 7:06 AM EDT 03/03/2025 7:40 AM EDT us Emile Queen MD LAB BLOOD ORDERABLES Final Resul t Performing Organization Address [facility]/[place] de Phone Number [facility] [address] [place] [address], [place] [phone] * Prostate specific antigen screen (02/03/2025 7:05 AM EDT) Pathologist [facility] PSA 2.85 0.00 - 4.00 ng/mL LAB CHEMISTRY METHOD 02/09/2025 6:09 PM EDT [facility] Blood Venous blood specimen / Unknown 02/03/2025 7:05 AM EDT 02/03/2025 8:00 AM EDT Narrative [facility] - 02/09/2025 6:09 PM EDT The Siemens Advia Centaur Chemiluminescent Immunoassay is used. Results obtained with different assay methods or kits cannot be used interchangeably. Results cannot be interpreted as absolute evidence of the presence or absence of malignant disease. us Emile Queen MD LAB BLOOD ORDERABLES Final Resul t [facility] [address] [place] [address], [place] [phone] * (ABNORMAL) Lipid panel with reflex to direct LDL (02/03/2025 7:05 AM EDT) Cholesterol 143 0 - 200 mg/dL LAB CHEMISTRY METHOD 02/03/2025 9:12 AM [facility] Triglycerides 133 0 - 150 mg/dL LAB CHEMISTRY METHOD 02/03/2025 9:12 AM [facility] HDL 33(L) >=40 mg/dL LAB CHEMISTRY METHOD 02/03/2025 9:12 AM [facility] LDL Calculated 83 0 - 100 mg/dL LAB CHEMISTRY METHOD 02/03/2025 9:12 AM [facility] VLDL Cholesterol Frank 26.6 mg/dL LAB CHEMISTRY METHOD 02/03/2025 9:12 AM [facility] Non HDL Chol. (LDL+VLDL) 110 <145 mg/dL LAB CHEMISTRY METHOD 02/03/2025 9:12 AM [facility] Chol/HDL Ratio 4.3 0.0 - 4.4 LAB CHEMISTRY METHOD 02/03/2025 9:12 AM [facility] Blood Venous blood specimen / Unknown 02/03/2025 7:05 AM EDT 02/03/2025 8:00 AM EDT us Emile Queen MD LAB BLOOD ORDERABLES Final Resul t [facility] [address] [place] [address], [place] [phone] * (ABNORMAL) CBC auto differential (02/03/2025 7:05 AM EDT) WBC 5.0 4.8 - 10.8 K/mcL LAB HEMETOLOGY METHOD 02/03/2025 8:49 AM EDT [facility] RBC 4.60 4.50 - 5.50 M/mcL LAB HEMETOLOGY METHOD 02/03/2025 8:49 AM EDT [facility] Hemoglobin 14.6 13.5 - 17.5 g/dL LAB HEMETOLOGY METHOD 02/03/2025 8:49 AM EDT [facility] Hematocrit 46.1 42.0 - 54.0 % LAB HEMETOLOGY METHOD 02/03/2025 8:49 AM EDT [facility] MCV 99.4(H) 79.0 - 98.0 FL LAB HEMETOLOGY METHOD 02/03/2025 8:49 AM EDT [facility] MCH 31.5 27.0 - 32.0 pcg LAB HEMETOLOGY METHOD 02/03/2025 8:49 AM EDT [facility] MCHC 31.7(L) 32.0 - 37.0 g/dL LAB HEMETOLOGY METHOD 02/03/2025 8:49 AM EDT [facility] RDW 13.4 11.0 - 15.0 % LAB HEMETOLOGY METHOD 02/03/2025 [facility] Plate[facility] 261 130 - 400 K/mcL LAB HEMETOLOGY METHOD 02/03/2025 8:49 AM EDT [facility] MPV 10.8 7.0 - 11.0 FL LAB HEMETOLOGY METHOD 02/03/2025 8:49 AM [facility] NRBC 0.0 <1.0 % LAB HEMETOLOGY METHOD 02/03/2025 8:49 AM [facility] NRBC Absolute 0.00 <0.10 K/mcL LAB HEMETOLOGY METHOD 02/03/2025 8:49 AM [facility] Neutrophils Relative 36.0 % LAB HEMETOLOGY METHOD 02/03/2025 8:49 AM [facility] Lymphocytes Relative 49.1 % LAB HEMETOLOGY METHOD 02/03/2025 8:49 AM [facility] Monocytes Relative 9.3 % LAB HEMETOLOGY METHOD 02/03/2025 8:49 AM [facility] Eosinophils Relative 4.6 % LAB HEMETOLOGY METHOD 02/03/2025 8:49 AM [facility] Basophils Relative 0.6 % LAB HEMETOLOGY METHOD 02/03/2025 8:49 AM [facility] Immature Granulocytes Relative 0.4 % LAB HEMETOLOGY METHOD 02/03/2025 8:49 AM [facility] Neutrophils Absolute 1.81 1.50 - 7.00 K/mcL LAB HEMETOLOGY METHOD 02/03/2025 8:49 AM [facility] Lymphocytes Absolute 2.47 1.00 - 5.00 K/mcL LAB HEMETOLOGY METHOD 02/03/2025 8:49 AM [facility] Monocytes Absolute 0.47 0.20 - 1.00 K/mcL LAB HEMETOLOGY METHOD 02/03/2025 8:49 AM [facility] Eosinophils Absolute 0.23 0.00 - 0.50 K/mcL LAB HEMETOLOGY METHOD 02/03/2025 8:49 AM EDT [facility] Basophils Absolute 0.03 0.00 - 0.20 K/mcL LAB HEMETOLOGY METHOD 02/03/2025 8:49 AM T [facility] Immature Granulocytes Absolute 0.02 0.00 - 0.03 K/mcL LAB HEMETOLOGY METHOD 02/03/2025 8:49 AM [facility] Blood Venous blood specimen / Unknown 02/03/2025 7:05 AM EDT 02/03/2025 8:00 AM EDT us Emile Queen MD LAB BLOOD ORDERABLES Final Resul t [facility] [address] [place] [address], [place] [phone] * (ABNORMAL) Comprehensive metabolic panel (02/03/2025 7:05 AM EDT) Sodium 137 133 - 145 mmol/L LAB CHEMISTRY METHOD 02/03/2025 9:12 AM [facility] Potassium 4.9 3.5 - 5.5 mmol/L LAB CHEMISTRY METHOD 02/03/2025 9:12 AM [facility] Chloride 107 96 - 110 mmol/L LAB CHEMISTRY METHOD 02/03/2025 9:12 AM [facility] CO2 27 21 - 32 mmol/L LAB CHEMISTRY METHOD 02/03/2025 9:12 AM [facility] Anion Gap 3 3 - 11 LAB CHEMISTRY METHOD 02/03/2025 9:12 AM [facility] Glucose 112(H) 70 - 100 mg/dL LAB CHEMISTRY METHOD 02/03/2025 9:12 AM [facility] BUN 20 5 - 25 mg/dL LAB CHEMISTRY METHOD 02/03/2025 9:12 AM [facility] Creatinine 0.97 0.70 - 1.30 mg/dL LAB CHEMISTRY METHOD 02/03/2025 9:12 AM [facility] eGFR 87 >=60 mL/min/1. 73m2 LAB CHEMISTRY METHOD 02/03/2025 9:12 AM [facility] Comment:Calculation based on the Chronic Kidney Disease Epidemiology Collaboration (CKD-EPI) equation refit without adjustment for race. BUN/Creatinine Ratio 20.6 LAB CHEMISTRY METHOD 02/03/2025 9:12 AM [facility] Calcium 10.1 8.5 - 10.5 mg/dL LAB CHEMISTRY METHOD 02/03/2025 9:12 AM [facility] AST (SGOT) 11 10 - 42 unit/L LAB CHEMISTRY METHOD 02/03/2025 9:12 AM [facility] ALT (SGPT) 22 10 - 60 unit/L LAB CHEMISTRY METHOD 02/03/2025 9:12 AM [facility] Alkaline Phosphatase 93 42 - 121 unit/L LAB CHEMISTRY METHOD 02/03/2025 9:12 AM [facility] Total Protein 8.0 6.0 - 8.0 g/dL LAB CHEMISTRY METHOD 02/03/2025 9:12 AM [facility] Albumin 4.1 3.2 - 5.0 g/dL LAB CHEMISTRY METHOD 02/03/2025 9:12 AM [facility] Total Bilirubin 0.3 0.0 - 1.4 mg/dL LAB CHEMISTRY METHOD 02/03/2025 9:12 AM [facility] Blood Venous blood specimen / Unknown 02/03/2025 7:05 AM EDT 02/03/2025 8:00 AM EDT us Emile Queen MD LAB BLOOD ORDERABLES Final Resul t [facility] [address] [place], [place] [address] [phone] from Last 3 Months Insurance MEDICARE MEDICAID - [place] Care Teams Fleet Salesperson Relationship Specialty Start Date End Date Emile Queen MD [address] [place] [address] [address] [place]son PCP - General Internal Medicine 10/02/24
--- OUTSIDE RECORDS SUMMARY | 2025-04-21 09:16 | XMS_ITS | Patient Health Record ---
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 Name Role Phone Emile Queen Primary Care Provider Srinivasa Escobedo Unavailable [phone] Allergies Allergen (clinical drug ingredient) Drug/Non Drug Allergy documented on EMR Reaction Allergy Type Onset Date Status Penicillin Unknown Drug Allergy Active fish/shell fish/SALM ON (uncoded) Unknown Allergy Active Reason For Referral No Information Medications Medication SIG (Take, Route, Frequency, Duration) Notes Start Date End Date Status Lurasidone HCl 60 MG 1 tablet in the cherise belinda with food Orally Once a day Active Chancellor Carbonate 300 MG 1 tablet Orally twice daily Active Acetaminophen 325 MG 1 tablet as needed Orally every 6 hrs Active metFORMIN HCl 1000 MG 1 tablet with a me al Orally Twice a day Active Finasteride 5 MG 1 tablet Orally Once a day Active Lyrica 300 MG 1 capsule Orally Twi ce a day Active Fleet Enema 7-19 GM/118ML 1 Rectal PRN Active Lantus SoloStar 100 UNIT/ML Subcutaneous for 13 Active Bisacodyl 10mg 1 enema as needed Orally PRN Active guaiFENesin 100mg 1 tablet as needed Orally prn Active Lisinopril 2.5 MG 1 tablet Orally Once a day Active Gemfibrozil 600 MG 1 tablet Orally Twic e a day Active Ibuprofen 600 MG 1 tablet with food o r milk as needed Orally Three times a day Not-Taking GlucaGen HypoKit 1 MG as directed Injection Active Senna 8.6mg 1 tablet Orally prn Active Latuda 20 MG 2 tablets with food Orally Once a day for 30 day(s) Active Biotene Dry Mouth - as directed Mouth/Throat Active Artificial Tear 1 2 frops both eyes BID Active Chlorhexidine Gluconate 0.12 % swish and spit 15ml Mouth/Throat daily Active Levothyroxine Sodium 25 MCG 1 tablet on an empty stomach in the morning Orally Once a day Active Albuterol Sulfate (2.5 MG/3ML) 0.083% 3 ml as needed Inhalation Three times a day Active Immunizations Vaccine Route Administration Date Status Comme nts Flu vaccine no Preserv 3 and > Unknown 06/30/2014 Admin istered Flu vaccine no Preserv 3 and > Unknown 05/12/2015 Admin istered Flu vaccine no Preserv 3 and > Unknown 06/07/2015 Admin istered Influenza Unknown 06/12/2022 Administered Influenza Unknown 06/16/2024 Administered Influenza Unknown 10/30/2018 Refused Social History Tobacco Use: Social History Observation Description Date Details (start date - stop date) Current Smoker NA - NA Tobacco Use/Smoking Question Answer Notes Patient is a current smoker How often do you smoke cigarettes? every day How many cigarettes a day do you smoke? 5 or les s How soon after you wake up d o you smoke your first cigarette? after 60 minutes Are you interested in quitting? Thinking about q uitting Section Notes: Smoker 5 cigs QD; no alcohol since 1998--heavy prior to that; former IVDA in the Smoker 5 cigs QD; no alcohol since 1998--heavy prior to that; former IVDA in the Smoker 5 cigs QD; no alcohol since 1998--heavy prior to that; former IVDA in the Smoker 5 cigs QD; no alcohol since 1998--heavy prior to that; former IVDA in the Smoker 5 cigs QD; no alcohol since 1998--heavy prior to that; former IVDA in the Smoker 5 cigs QD; no alcohol since 1998--heavy prior to that; former IVDA in the Smoker 5 cigs QD; no alcohol since 1998--heavy prior to that; former IVDA in the Smoker 5 cigs QD; no alcohol since 1998--heavy prior to that; former IVDA in the Smoker 5 cigs QD; no alcohol since 1998 but heavy prior to that; former IVDA in the Smoker 5 cigs QD; no alcohol since 1998 but heavy prior to that; former IVDA in the Smoker 5 cigs QD; no alcohol since 1998 but heavy prior to that; former IVDA in the Smoker 5 cigs QD; no alcohol since 1998 but heavy prior to that; former IVDA in the Problems Problem Type SNOMED Code ICD Code Onset Dates Problem Status W/U Status Risk Notes Problem [id number] Encounter for screening for malignant neoplasm of colon (Z12.11) Active confirmed Problem Screening for malignant neoplasm of rectum (124413648) Encounter for screening for malignant neoplasm of rectum (Z12.12) Active confirmed Problem 333663816 Chronic hepatitis C without hepatic coma (B18.2) Active confirmed Problem 354304644 Elevated liver enzymes (R74.8) Active confirmed Problem 17403430980907 History of hepatitis C (Z86.19) Active confirmed Problem 48528210 Liver fibrosis (K74.0) Active confirmed Problem 47106445 Liver fibrosis (K74.00) Active confirmed Problem 09103457 Fibrosis of liver (K74.00) Active confirmed Vital Signs Temperature 98.4 degrees Fahrenheit 03/03/2025 Blood pressure diastolic 01 mm Hg 03/03/2025 Height 63.5 in 03/03/2025 Blood pressure systolic 001 mm Hg 03/03/2025 Weight 176.2 lbs 03/03/2025 BMI 30.72 kg/m2 03/03/2025 Encounters Encounter Location Date Provider Diagnosis [facility] [address] [place] [address] 03/03/2025 Srinivasa Adame Chronic hepatitis C without hepatic coma B18.2 ; Liver fibrosis K74.0 ; Fibrosis of liver K74.00 and Encounter for screening for malignant neoplasm of colon Z12.11 Assessments Encounter Date Diagnosis (ICD Code) Assessment Notes Treatment Notes Treatment Clinical Notes Section Notes 03/03/2025 Chronic hepatitis C without hepatic coma (ICD-10 - B18.2) Overall, Haven appears well. He does not show any signs nor describe any symptoms of progressive liver disease at this time. I have recommended a follow-up abdominal ultrasound for further screening in regard to his chronic liver disease from the previous hepatitis C. He will also have the usual laboratories as ordered below in regard to his chronic liver disease as well. He should continue to have these studies done on a yearly basis. We did review that he will be due for a follow-up colonoscopy for screening in 2027 as well, given the negative exam back in 2018. If things remain stable I will plan to see Haven in 1 year for a follow-up office visit. He should be seen earlier if any problems or questions arise that I can be of assistance with. Thank you again for allowing me to participate in Haven's care. I shall continue to keep you advised of his progress. 03/03/2025 Liver fibrosis (ICD-10 - K74.0) Overall, Haven appears well. He does not show any signs nor describe any symptoms of progressive liver disease at this time. I have recommended a follow-up abdominal ultrasound for further screening in regard to his chronic liver disease from the previous hepatitis C. He will also have the usual laboratories as ordered below in regard to his chronic liver disease as well. He should continue to have these studies done on a yearly basis. We did review that he will be due for a follow-up colonoscopy for screening in 2027 as well, given the negative exam back in 2018. If things remain stable I will plan to see Haven in 1 year for a follow-up office visit. He should be seen earlier if any problems or questions arise that I can be of assistance with. Thank you again for allowing me to participate in Haven's care. I shall continue to keep you advised of his progress. 03/03/2025 Fibrosis of liver (ICD-10 - K74.00) Overall, Haven appears well. He does not show any signs nor describe any symptoms of progressive liver disease at this time. I have recommended a follow-up abdominal ultrasound for further screening in regard to his chronic liver disease from the previous hepatitis C. He will also have the usual laboratories as ordered below in regard to his chronic liver disease as well. He should continue to have these studies done on a yearly basis. We did review that he will be due for a follow-up colonoscopy for screening in 2027 as well, given the negative exam back in 2018. If things remain stable I will plan to see Haven in 1 year for a follow-up office visit. He should be seen earlier if any problems or questions arise that I can be of assistance with. Thank you again for allowing me to participate in Haven's care. I shall continue to keep you advised of his progress. 03/03/2025 Encounter for screening for malignant neoplasm of colon (ICD-10 - Z12.11) Repeat colonoscopy in 2027 Overall, Haven appears well. He does not show any signs nor describe any symptoms of progressive liver disease at this time. I have recommended a follow-up abdominal ultrasound for further screening in regard to his chronic liver disease from the previous hepatitis C. He will also have the usual laboratories as ordered below in regard to his chronic liver disease as well. He should continue to have these studies done on a yearly basis. We did review that he will be due for a follow-up colonoscopy for screening in 2027 as well, given the negative exam back in 2017. If things remain stable I will plan to see Haven in 1 year for a follow-up office visit. He should be seen earlier if any problems or questions arise that I can be of assistance with. Thank you again for allowing me to participate in Haven's care. I shall continue to keep you advised of his progress. Plan Of Treatment Pending Test Test Name Order Date BUN 06/13/2014 CREATININE 06/13/2014 LIVER PROFILE 10/31/2022 LIVER PROFILE 03/06/2016 LIVER PROFILE 10/20/2013 LIVER PROFILE 10/30/2018 LIVER PROFILE 08/17/2021 LIVER PROFILE 02/15/2016 LIVER PROFILE 06/01/2014 LIVER PROFILE 03/03/2024 LIVER PROFILE 12/19/2023 LIVER PROFILE 03/03/2025 LIVER PROFILE 10/18/2015 CBC w DIFF 10/18/2015 CBC w DIFF 05/31/2015 CBC w DIFF 10/31/2022 CBC w DIFF 10/20/2013 CBC w DIFF 10/30/2018 CBC w DIFF 08/17/2021 CBC w DIFF 02/15/2016 CBC w DIFF 03/03/2024 CBC w DIFF 12/19/2023 CBC w DIFF 03/03/2025 PROTHROMBIN TIME (PT, INR) 10/20/2013 PROTHROMBIN TIME (PT, INR) 10/30/2018 PROTHROMBIN TIME (PT, INR) 08/17/2021 ALPHA-FETOPROTEIN,TUMOR MARKER 4 ALPHA-FETOPROTEIN,TUMOR MARKER 4 ALPHA-FETOPROTEIN,TUMOR MARKER 9 ALPHA-FETOPROTEIN,TUMOR MARKER 5 ALPHA-FETOPROTEIN,TUMOR MARKER 1 ALPHA-FETOPROTEIN,TUMOR MARKER 3 ALPHA-FETOPROTEIN,TUMOR MARKER 4 ALPHA-FETOPROTEIN,TUMOR MARKER 4 HEPATITIS C VIRAL LOAD 06/01/2014 HEPATITIS C VIRAL LOAD 10/20/2013 HEPATITIS C VIRAL LOAD 03/03/2024 HEPATITIS C VIRAL LOAD 12/19/2023 HEPATITIS C VIRAL LOAD 10/30/2018 HEPATITIS C VIRAL LOAD 10/18/2015 HEPATITIS C VIRAL LOAD 03/03/2025 HEPATITIS C VIRAL LOAD 08/17/2021 HEPATITIS C VIRAL LOAD 03/06/2016 HEPATITIS C VIRAL LOAD 10/31/2022 HEPATITIS C VIRAL LOAD 02/15/2016 HEPATITIS C GENOTYPE 10/20/2013 MRI ABD W&WO CONTRAST 06/13/2014 HCV LIVER FIBROSIS, FIBRO TEST 4 HCV LIVER FIBROSIS, FIBRO TEST 4 HCV LIVER FIBROSIS, FIBRO TEST 5 HCV LIVER FIBROSIS, FIBRO TEST 1 US ABDOMEN COMP WITH ELASTOGRAPHY 2020 US ABDOMEN COMP WITH ELASTOGRAPHY 2022 Prothrombin Time INR 10/31/2022 Prothrombin Time INR 12/19/2023 Prothrombin Time INR 03/03/2025 Liver Fibrosis Pnl 10/31/2022 US abdomen comp w elastography 5 US abdomen comp w elastography 4 US abdomen comp w elastography 4 Future Test Test Name Order Date COLONOSCOPY 09/19/2017 Next Appt Details Provider Name:Srinivasa Adame , 03/03/2026 11:00:00 AM, [address] [place] [address], [address], [place], [address], Insurance Providers Payer Name Payer Address Payer Phone Subscriber Number Group Number Insured Name Patient Relationship to Insured Coverage Start Date Coverage End Date MEDICARE OF [facility] [address] [place] [address] [id number] ALANNAH HAVEN Self - patient is the insured [employer] [address] [place] [id number] HAVEN JAFFE Self - patient is the insured Medical (General) History Medical History History ICD Code IDDM hypertension schizo-affective disorder-bi polar disease--previously hospitalized--records from the [facility] describe psychosis as well Hep C---previous IVDA--absti nent for many years --he has hepatitis C genotype 1B-his hepatitis C viral load was over 3 million in May of 2014--his alpha-fetoprotein level was 14.4 and a MRI of the liver in May of 2014 was negative for any mass nor any sign of cirrhosis--his liver profile in May 2014 showed an AST of 158 and ALT of 112, with a normal total bilirubin and albumin--- a liver biopsy in May 2015 revealed a grade 2-3/4 hepatitis and stage III/IV bridging fibrosis. He was treated with 3 months of Harvoni through 12/2015 and had a neg. Hep C viral load in 02/2016, 05/2016, and 08/2017 Denies LA,CVA,Lung disease,renal disease Hyperlipidemia Reported brain injury type II diabetes Hypothyroidism He had a negative colonoscop y in 11/2011 at [facility], although according to the report the prep was somewhat limited and the wood last maker, Dr. Cantu, recommended a followup colonoscopy in 5 years as opposed to 10 years due to the limited prep Neg. colonoscopy in 11/2017 Surgical History Surgery Date(Month/Year) Rib removed from right side Right eye surgery-for cancer , as repor lakes[place] by the patient
== END 2025-04-21 08:49 | disposition home or self-care (01) ==
LOC: HO.US 08:48
PROVIDERS: PCP Hospitalist; Visit Provider Internal Medicine
DX: B18.2 Chronic viral hepatitis C (principal); K74.00 Hepatic fibrosis, unspecified
CPT/HCPCS: 76700; 76981

== ENCOUNTER → 2025-04-21 09:08 | Outpatient (BNV) | payer MEDICARE, MEDICAID, SELFPAY | PROVIDERS: PCP Hospitalist; Visit Provider Radiology Diagnostic Radiology | DX: K74.00 Hepatic fibrosis, unspecified (principal) | CPT/HCPCS: 76700 ==